=== PATIENT | female | born 1985 | race Caucasian/White ===

== ENCOUNTER 2017-07-19 23:18 | Emergency (ER) | payer MEDICARE, MEDICAID ==
--- OUTSIDE RECORDS SUMMARY | 2017-07-19 23:20 | XMS | Clinical Summary ---
:1985 Author Organization [facility] Address [address] [place] [address] Phone Care Team Providers Name Role Phone , Primary Care Provider Unavailable Allergies Not on File Current Medications Not on file Active Problems Not on file Social History Tobacco Use Types Packs/Day Years Used Date Never Assessed Sex Assigned at Date Recorded Not on file Last Filed Vital Signs Not on file Plan of Treatment Not on file Results Not on filefrom Last 3 Months
[2017-07-20 01:39] LABS: #Eosinphils 0.1 thou/uL (0.0-0.7); #Lymphocytes 1.7 thou/uL (1.20-3.40); #Monocytes 0.5 thou/uL (0.11-0.59); #Neutrophils 4.2 thou/uL (1.40-6.50); %Basophils 0.7 % (0.0-1.0); %Lymphocytes 25.6 % (21.0-51.0); %Monocytes 7.9 % (0.0-10.0); Hematocrit 30.7 % (36.0-47.0); Mean Platelet Volume 7.5 fL (7.4-10.4); Red Blood Cell (RBC) Count 3.06 mill/uL (4.20-5.40); White Blood Cell (WBC) Count 6.5 thou/uL (4.8-10.8)
[2017-07-20 02:10] LABS: ALT (SGPT) 203 U/L (8-55); AST (SGOT) 104 U/L (5-34); Alkaline Phosphatase 636 U/L (40-150); Anion Gap 11 mmol/L (10-20); BUN (Urea Nitrogen) 17 mg/dL (7.0-18.7); Bilirubin, Total 1.2 mg/dL (0.2-1.2); Calc. Creatinine Clearance 0 mL/min (70-130); Carbon Dioxide 25 mmol/L (22-29); Chloride 106 mmol/L (98-107); Estimated GFR-MDRD Greater than 90; Globulin 3.9 g/dL (2.4-3.5); Protein, Total 7.4 g/dL (6.0-8.3)
[2017-07-20 02:14] LABS: Bilirubin Small (Negative); Blood, Urine Small (Negative); Glucose, Urine (Dipstick) Negative (Negative); Ketone, Urine Negative (Negative); Nitrite Negative (Negative); Protein, Urine (Dipstick) Negative (Neg-Trace)
[2017-07-20 02:17] LABS: Bacteria/HPF 4+ HPF (None Seen); RBC/HPF 21-50 HPF (0-3); WBC/HPF 21-50 HPF (0-3)
[2017-07-20 02:24] LABS: Hyaline Casts/LPF 0-3 HYALINE CAST LPF (0-3 Hyaline); Renal Epithelial None Seen HPF (0-3); Transitional Epithelial NONE SEEN HPF (0-3)
--- NOTE | 2017-07-20 09:41 | RAD ---
RADIOGRAPH ABDOMEN 1 VIEW SUPINE: Date: 07/20/17 Time: 0056 hours HISTORY: 32-year-old female with constipation, gastroparesis, intestinal dysmotility, presenting with worseni ng generalized abdominal pain. COMPARISON: 02/09/16. FINDINGS: There is a greater amount of bowel gas currently, especially throughout the colon. There is also a g reater amount of bowel gas in nondilated small bowel loops now. Cholecystectomy clips. Large amount of stool distending the rectum again demonstrated, somewhat worse than on prior study. No evidence o f organomegaly. PEG tube remains, with distal tip in the left upper quadrant, presumably at the liga ment of Treitz. IMPRESSION: 1. Evidence for constipation and possible impacted stool in the rectum. 2. Nonspecific bowel gas pattern, but no evidence of high grade small bowel obstruction. POS: CHARIS
== END 2017-07-20 03:42 | disposition home or self-care (01) ==
LOC: ERS 23:18
DX: K59.00 Constipation, unspecified (principal); N39.0 Urinary tract infection, site not specified; G40.909 Epilepsy, unspecified, not intractable, without status epilepticus; Z79.899 Other long term (current) drug therapy
CPT/HCPCS: 51701; 74000; 80053; 80156; 81003; 81015; 85025; A4353

== ENCOUNTER 2017-08-18 06:48 | Inpatient (IN) | payer MEDICARE, MEDICAID ==
[2017-08-15 11:35] VITALS: BMI 19.6
--- OUTSIDE RECORDS SUMMARY | 2017-08-18 08:39 | XMS | Clinical Summary ---
:1985 Author Organization [facility] Address [address] [place] [address] Phone Care Team Providers Name Role Phone [...]
[2017-08-18] MEDS ORDERED: Fentanyl 100 MCG/2 ML VIAL ONE ×2 (09:05→13:01)
[2017-08-18] MEDS ORDERED: Midazolam HCl 2 mg/2 ml Vial ONE (09:05)
[2017-08-18] MEDS ORDERED: Dexamethasone 4 mg/ml Vial ONE (09:05)
[2017-08-18] MEDS ORDERED: Fentanyl 250 MCG/5 ML VIAL ONE (10:33)
[2017-08-18] MEDS ORDERED: Bupivacaine 0.25% HCL 30 ML VIAL ONE (10:46)
[2017-08-18] MEDS ORDERED: Lidocaine 1% PF 5 ML VIAL ONE (11:08)
[2017-08-18] MEDS ORDERED: Dexamethasone 20 MG/5 ML VIAL ONE (11:08)
[2017-08-18] MEDS ORDERED: Propofol 200 MG/20 ML VIAL ONE (11:08)
[2017-08-18] MEDS ORDERED: Glycopyrrolate 0.2 MG/ML 5 ML SYRINGE ONE (11:08)
[2017-08-18] MEDS ORDERED: hydrALAZINE 20 MG/ML VIAL SLOW IVP PRN (12:14)
[2017-08-18] MEDS ORDERED: Promethazine HCl 25 MG/ML VIAL IM PRN (12:14)
[2017-08-18] MEDS ORDERED: Ondansetron HCl/PF 4 MG/2 ML Vial IVP PRN (12:14)
[2017-08-18] MEDS ORDERED: Morphine 2 MG/ML SYRINGE SLOW IVP PRN (12:14)
--- NOTE | 2017-08-18 12:37 | OP ---
DATE OF PROCEDURE: 08/18/2017 PREOPERATIVE DIAGNOSIS: Colonic inertia. SURGEON: Celestine Vincent M.D. PROCEDURE PERFORMED: Laparoscopic assisted ileostomy placement. 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 She has had a lot of intestinal cramps and inertia, she has been throu gh multiple regimens to try and get her colon to function properly. She is TPN dependent because sh e cannot take in orally because it will not pass. Her mom was looking for a total colectomy, but we discussed options of just an ileostomy to start with, and she agreed. FINDINGS: The terminal ileum was divided as an end ileostomy. The distal segment was left in situ. PROCEDURE: After informed consent was obtained, the patient was taken to the operating room and giv en general endotracheal anesthesia. She was placed in the supine position. The abdomen was prepped and draped in the usual fashion. Local anesthesia infiltrated subcutaneously and deep with 0.5% Ma rcaine. A 5 mm incision was performed on the left lateral side. Veress needle inserted. Drop test performed. Pneumoperitoneum was created to a volume of 2 liters of carbon dioxide. Utilizing a bl adeless 5 mm trocar and 0 degree laparoscope direct visual entry in the abdominal cavity was perform ed. Pneumoperitoneum was created to a pressure of 15 mmHg. Using the laparoscope, a visual inspect ion was performed. The cecum was found, the terminal ileum was found. At this point, the skin was grasped with a Maria A clamp midway between umbilicus and the anterior superior iliac spine. A circu lar skin incision was performed as well as subcutaneous was excised. Then a 5 mm port was placed th rough the center of this opening and through this port the ileum was grasped and then the muscle was divided with electrocautery and the ileum was brought up through this opening. The ileum was then divided utilizing a CHILANGO stapling device and the mesentery was approximately 3 cm and then the distal portion of the ileum was replaced intraabdominally and the ileostomy was then created. T he bowel was attached to the fascia circumferentially with interrupted 3-0 Vicryl sutures. The skin incision on the left side was closed with 4-0 Vicryl Rapide and Dermabond applied, then the staple line was excised and the ileostomy matured with an inverting technique to prolapse the distal portio n of the ileum through the ostomy in a Witzel manner. The skin was sutured to the bowel wall and th en to the edge of the ileum to invert it circumferentially. The hemostasis achieved. A wafer appli ed and then an ileostomy bag. The patient tolerated the procedure well and transferred to recovery in good condition.
[2017-08-18] MEDS ORDERED: cefOXitin Sodium 1 GM, Syringe 0.5 ML in Sterile Water 10 ML SLOW IVP SCH (14:00)
[2017-08-18] MEDS ORDERED: CEFOXITIN SODIUM IVPB SCH (14:00)
[2017-08-18] MEDS ORDERED: STERILE WATER IVPB SCH (14:00)
[2017-08-18] MEDS ORDERED: Ondansetron ODT 8 MG TAB PER TUBE PRN (14:05)
[2017-08-18] MEDS ORDERED: diphenhydrAMINE 12.5 MG/5 ML UDCUP PER TUBE PRN (14:10)
[2017-08-18] MEDS: Morphine 2 MG/ML SYRINGE SLOW IVP PRN ×2 (14:14→15:58)
[2017-08-18] MEDS: Sodium Chloride 0.9% 1,000 ML IV SCH ×2 (14:18→23:27)
[2017-08-18] MEDS ORDERED: fentaNYL 75 mcg/hour Patch TD SCH (15:00)
[2017-08-18] MEDS ORDERED: carBAMazepine 200 MG TAB PER TUBE SCH (15:00)
[2017-08-18] MEDS: Simethicone Chewable 80 MG TAB PER TUBE SCH ×2 (15:22→20:16)
[2017-08-18] MEDS: Dicyclomine 20 MG TAB PER TUBE SCH ×2 (15:24→20:16)
[2017-08-18] MEDS: Lorazepam 1 MG TAB PER TUBE SCH ×2 (15:24→20:16)
[2017-08-18] MEDS: Bethanechol Chloride 10 MG TAB PER TUBE SCH ×2 (15:25→20:15)
[2017-08-18] MEDS ORDERED: FLU VACC QS2017-18 36 mo. & older 0.5 ML SYRINGE IM ONE (15:30)
[2017-08-18] MEDS: Morphine 10 MG/ML VIAL SLOW IVP PRN ×4 (17:32→21:27)
[2017-08-18] MEDS: Acetaminophen 1,000 MG in Premix Bag 1 BAG IVPB SCH ×2 (17:33→23:28)
[2017-08-18] MEDS: Ketorolac Tromethamine 30 MG/ML VIAL IVP SCH ×2 (17:33→23:27)
[2017-08-18] MEDS: cefOXitin Sodium 1 GM, Syringe 0.5 ML in Sterile Water 10 ML SLOW IVP SCH (20:14)
[2017-08-18] MEDS: Famotidine/PF 20 mg/2ml Vial SLOW IVP SCH (20:15)
[2017-08-18] MEDS: carBAMazepine 200 MG TAB PER TUBE SCH (20:51)
[2017-08-18] MEDS: Famotidine 20 MG TAB PO SCH (21:12)
[2017-08-19] MEDS: cefOXitin Sodium 1 GM, Syringe 0.5 ML in Sterile Water 10 ML SLOW IVP SCH (04:23)
[2017-08-19] MEDS: Acetaminophen 1,000 MG in Premix Bag 1 BAG IVPB SCH ×2 (05:21→12:18)
[2017-08-19] MEDS: Ketorolac Tromethamine 30 MG/ML VIAL IVP SCH ×2 (05:22→12:16)
[2017-08-19] MEDS: Morphine 10 MG/ML VIAL SLOW IVP PRN ×6 (05:26→14:45)
[2017-08-19 05:41] LABS: #Basophils 0.1 thou/uL (0.0-0.2); #Eosinphils 0.1 thou/uL (0.0-0.7); #Lymphocytes 2.9 thou/uL (1.20-3.40); #Monocytes 0.7 thou/uL (0.11-0.59); #Neutrophils 3.3 thou/uL (1.40-6.50); %Basophils 1.1 % (0.0-1.0); %Eosinophils 1.1 % (0.0-10.0); %Monocytes 9.8 % (0.0-10.0); Hematocrit 30.3 % (36.0-47.0); Mean Platelet Volume 8.3 fL (7.4-10.4); Red Blood Cell (RBC) Count 2.92 mill/uL (4.20-5.40)
[2017-08-19 06:02] LABS: Anion Gap 11 mmol/L (10-20); BUN (Urea Nitrogen) 13 mg/dL (7.0-18.7); Calc. Creatinine Clearance 111 mL/min (70-130); Carbon Dioxide 22 mmol/L (22-29); Chloride 108 mmol/L (98-107); Estimated GFR-MDRD Greater than 90
[2017-08-19] MEDS: Sodium Chloride 0.9% 1,000 ML IV SCH (06:52)
[2017-08-19] MEDS ORDERED: Enoxaparin Sodium 30 MG/0.3 ML SYRINGE SC SCH (09:00)
[2017-08-19] MEDS ORDERED: Pantoprazole 40 MG VIAL IVP SCH (09:00)
[2017-08-19] MEDS: Famotidine/PF 20 mg/2ml Vial SLOW IVP SCH (09:32)
[2017-08-19] MEDS: Bethanechol Chloride 10 MG TAB PER TUBE SCH ×2 (09:34→15:01)
[2017-08-19] MEDS: carBAMazepine 200 MG TAB PER TUBE SCH ×2 (09:37→15:02)
[2017-08-19] MEDS: Simethicone Chewable 80 MG TAB PER TUBE SCH ×2 (09:38→14:58)
[2017-08-19] MEDS: Lorazepam 1 MG TAB PER TUBE SCH ×2 (09:40→15:00)
[2017-08-19] MEDS: Dicyclomine 20 MG TAB PER TUBE SCH ×2 (09:40→15:01)
[2017-08-19] MEDS: Famotidine 20 MG TAB PO SCH (09:41)
--- NOTE | 2017-08-19 10:33 | PQF ---
IRA GILLESPIE JOHN A JR MD [id number] SURG A- [id number] CLINICAL DOCUMENTATION IMPROVEMENT CLARIFICATION FORM: ICD-10 Updated PLEASE DO AN ADDENDUM TO THE PROGRESS NOTE WITH ANY DOCUMENTATION UPDATES OR ADDITIONS AND CARRY THROUGH TO DC SUMMARY. THANK YOU. DATE: 08-19-17 ATTN: DR. JOSHUA Please exercise your independent, professional judgment in responding to the clarification form. Clinical indicators are provided on the bottom of this form for your review Please check appropriate box(s): [ ] Functional Quadriplegia D/T RETT'S DX [ ] Weakness (please specify anatomical area) Specify: [ ] Non dominant side [ ] Dominant side [ ] Hemiplegia Specify: [ ] Non dominant side [ ] Dominant side Status: [ ] Complete [ ] Incomplete [ ] Paraplegia Specify: [ ] Non dominant side [ ] Dominant side Status: [ ] Complete [ ] Incomplete [ ] Other diagnosis [ ] Unable to determine In addition, please specify: Present on Admission (POA): [ ] Yes [ ] No [ ] Unable to determine CLINICAL INDICATORS - SIGNS / SYMPTOMS / LABS DR. MCNAIR - CARDIO CONSULT BMI 19.7 - THIN WHEELCHAIR BOUND UPPER EXTREMITY CONTRACTURES NECK IS STIFF NON-VERBAL PSYCHOMOTOR RETARDATION - NURSING ASSESSMENT: ORIENTATION - UNABLE TO ASSESS - UNABLE TO COMPREHEND DYSPHAGIA W/ FEEDING TUBE NONAMBULATORY INCONTINENT - DIAPER VERY LIMITED MOBILITY; VERY LIMITED SENSORY PERCEPTION; CHAIRFAST RISK FACTORS OP NOTE: RETT'S DX TREATMENT: 08-18 NURSING ASSESSMENT: TOTAL ASSIST - CHAIRFAST DIAPER OP NOTE: TPN DEPENDENT LAPAROSCOPIC ASSISTED ILEOSTOMY PLACEMENT THANK YOU, ALEXA (This form is maintained as a part of the permanent medical record) 2014 [employer]. All Rights Reserved Alexa Devine RN, BS [email or web address] [employer] [facility]
[2017-08-19 11:55] VITALS: BP 128/84; TEMP 98.1
--- NOTE | 2017-08-20 03:48 | DIS ---
DISCHARGE DIAGNOSIS: Colonic inertia. SURGEON: Celestine Vincent MD PROCEDURE PERFORMED: Laparoscopic diverting ileostomy. HOSPITAL COURSE: The patient was admitted. She was taken to the operating room, where she underwen t an ileostomy. Postoperatively, did very well. She was resumed on her outpatient medicines. Her mother was instructed as to care of the ostomy. She felt comfortable. She is discharged home in go od condition on her usual TPN and medications. She will follow up with me in 2 weeks.
== END 2017-08-19 15:15 | disposition home health service (06) | DRG 330 ==
LOC: SURG A 08:26
PROVIDERS: ADMIT Surgery; ATTEND Surgery
PROC: 0D1B0Z4 Bypass Ileum to Cutaneous, Open Approach (ICD-10-PCS; principal; 2017-08-18)
PROC: 0WJP4ZZ Inspection of Gastrointestinal Tract, Percutaneous Endoscopic Approach (ICD-10-PCS; 2017-08-18)
DX: K59.8 Other specified functional intestinal disorders (principal); F84.2 Rett's syndrome; F79 Unspecified intellectual disabilities; K21.9 Gastro-esophageal reflux disease without esophagitis
CPT/HCPCS: 36415; 80048; 80053; 85025; A4216; C9113; J0131; J0694; J1100; J1885; J2001; J2250; J2270; J2704; J3010; S0020; S0028

== ENCOUNTER 2017-09-01 16:28 | Emergency (ER) | payer MEDICARE, MEDICAID ==
[~2017-09-01 16:28] MED LIST: GASTROGRAFIN 30 ML BOT ONE
--- OUTSIDE RECORDS SUMMARY | 2017-09-01 17:56 | XMS | Clinical Summary ---
:1985 Author Organization [facility] Address [address] [place] [address] Phone Care Team Providers Name Role Phone [...]
--- NOTE | 2017-09-01 18:52 | RAD ---
ABDOMEN ONE VIEW GASTROJEJUNOSTOMY TUBE CHECK: History: Poor function of gastrojejunostomy feeding catheter. FINDINGS: Senior Sales Executive KUB shows a nonspecific bowel gas pattern. Metallic clips overlie the right upper quadrant. Po st-operative changes of the right lower quadrant are also evident with circular device, having the a ppearance of an ostomy. Small amount of contrast was administered through the jejunostomy feeding catheter, opacifying nondi lated jejunum. Tube is well positioned within the proximal jejunum. IMPRESSION: Subcutaneous gastrojejunostomy feeding catheter is good position with good radiographic function. POS: [facility]ARD
== END 2017-09-01 19:23 | disposition home or self-care (01) ==
LOC: ERS 16:28
DX: K94.23 Gastrostomy malfunction (principal); F84.2 Rett's syndrome; Z79.2 Long term (current) use of antibiotics; Z79.899 Other long term (current) drug therapy
CPT/HCPCS: 74000; 76000; 80053; 80061; 80076; 83735; 84100; 85025

== ENCOUNTER 2018-01-21 14:13 | Emergency (ER) | payer MEDICARE, MEDICAID ==
[2018-01-21 15:25] LABS: #Eosinphils 0.1 thou/uL (0.0-0.7); #Lymphocytes 2.3 thou/uL (1.20-3.40); #Monocytes 0.3 thou/uL (0.11-0.59); #Neutrophils 3.4 thou/uL (1.40-6.50); %Basophils 0.8 % (0.0-1.0); %Lymphocytes 36.9 % (21.0-51.0); %Monocytes 4.8 % (0.0-10.0); %Neutrophils 56.5 % (42.0-75.0); Hemoglobin 10.7 g/dL (12.0-16.0); Mean Corpuscular HGB CONC 33.9 g/dL (32.0-36.0); Mean Corpuscular Hemoglobin 33.8 pg (27.0-31.0); Mean Corpuscular Volume 99.7 fl (81.0-99.0); Mean Platelet Volume 9.1 fL (7.4-10.4); Platelet Count 234 thou/uL (130-400); RBC Distribution Width 12.5 % (11.5-14.5); Red Blood Cell (RBC) Count 3.17 mill/uL (4.20-5.40); White Blood Cell (WBC) Count 6.1 thou/uL (4.8-10.8)
[2018-01-21 15:47] LABS: CRP (Inflammatory) 1.25 mg/dL (= or < 0.5)
[2018-01-21 16:01] LABS: ALT (SGPT) 406 U/L (8-55); AST (SGOT) 304 U/L (5-34); Albumin 4.1 g/dL (3.5-5.0); Alkaline Phosphatase 1069 U/L (40-150); Anion Gap 17 mmol/L (10-20); BUN (Urea Nitrogen) 17 mg/dL (7.0-18.7); Bilirubin, Total 5.5 mg/dL (0.2-1.2); Calc. Creatinine Clearance 0 mL/min (70-130); Calcium 10.5 mg/dL (7.8-10.44); Carbon Dioxide 19 mmol/L (22-29); Chloride 107 mmol/L (98-107); Estimated GFR-MDRD Greater than 90; Globulin 5.1 g/dL (2.4-3.5); Glucose 85 mg/dL (70-105); Potassium 3.5 mmol/L (3.5-5.1); Protein, Total 9.2 g/dL (6.0-8.3); Sodium 139 mmol/L (136-145)
[2018-01-21 19:05] LABS: Bilirubin Small (Negative); Blood, Urine Small (Negative); Clarity CLOUDY (Clear); Glucose, Urine (Dipstick) Negative (Negative); Leukocyte Trace (Negative); Nitrite Negative (Negative); Protein, Urine (Dipstick) Negative (Neg-Trace); Specific Gravity, Urine 1.018 (1.002-1.036); Urobilinogen 0.2 mg/dL (0.2-1.0)
[2018-01-21 19:07] LABS: Bacteria/HPF 4+ HPF (None Seen); Hyaline Casts/LPF 0-3 HYALINE CAST LPF (0-3 Hyaline); Squamous Epithelial None Seen HPF (0-3); WBC/HPF 0-3 HPF (0-3)
[2018-01-21] MEDS ORDERED: Morphine 10 MG/ML VIAL ONE (20:26)
== END 2018-01-21 20:50 | disposition home or self-care (01) ==
LOC: ERS 14:13
DX: T82.49XA Other complication of vascular dialysis catheter, initial encounter (principal); N39.0 Urinary tract infection, site not specified; K59.00 Constipation, unspecified; G40.909 Epilepsy, unspecified, not intractable, without status epilepticus; G24.9 Dystonia, unspecified
CPT/HCPCS: 36415; 51701; 80053; 81003; 81015; 83690; 83880; 85025; 86140; 96372; A4353; J2270

== ENCOUNTER → 2018-01-23 | Day surgery (SDC) | payer MEDICARE, MEDICAID ==
[~2018-01-23] MED LIST changes: +Bupivacaine HCl 0.5%/Epinephrine 1:200,000/PF 30 ml Vial ONE; +CEFAZOLIN/Water 2 GM/20 ML SYRINGE ONE; +Fentanyl 100 MCG/2 ML VIAL ONE; -GASTROGRAFIN 30 ML BOT ONE; +HYDROmorphone 0.5 MG/0.5 ML SYRINGE ONE; +Lidocaine 2% 10 ML INJ ONE; +Midazolam HCl 2 mg/2 ml Vial ONE; +Propofol 200 MG/20 ML VIAL ONE
--- NOTE | 2018-01-23 12:42 | HP ---
HISTORY OF PRESENT ILLNESS: Orquidea Cartwright is a 32-year-old female who I have been following for so me time, placing Ward catheters because of dysphagia, gastroparesis, Maninder syndrome, TPN dependenc y. Her Ward catheter is fractured. She presented to the emergency room 2 days ago and a clamp wa s applied. We do not have a repair kit. Plan is to replace the Ward catheter. PAST MEDICAL HISTORY: Gastroparesis, seizure disorder, Maninder syndrome. PAST SURGICAL HISTORY: 1. Catheter was placed in the past. 2. Tendon repair. 3. Cholecystectomy. 4. PEG tube placement. 5. History of jejunostomy tube. 6. Dr. Vincent placed an ileostomy because of colonic inertia 07/2017. ALLERGIES: BENZOIN, LAMOTRIGINE. TOBACCO: None. ALCOHOL: None. MEDICATIONS: Amoxicillin, Urecholine, Tegretol, Bentyl, diphenhydramine, Nexium, ferrous sulfate, Di laudid, lorazepam, Zofran. PHYSICAL EXAMINATION: LUNGS: Clear to auscultation. CARDIAC: Regular rate and rhythm without murmur or gallop. ABDOMEN: Soft. Ileostomy, PEG tube placement. EXTREMITIES: Unremarkable. ASSESSMENT AND PLAN: Ward catheter malfunction. Plan replacement of Ward.
--- NOTE | 2018-01-23 15:11 | OP ---
DATE OF OPERATION: 01/23/2018 PREOPERATIVE DIAGNOSES: Rett syndrome, malnutrition, nonfunctional gastrointestinal tract ileostomy, Button gastrostomy tube, fractured Ward catheter port. PROCEDURES PERFORMED: Removal of old Ward catheter, left subclavian vein, placement of a new Hick man catheter, left subclavian vein. Note, right subclavian vein probably occluded. SURGEON: Dr. Agustín Barcenas ANESTHESIA: General. Local 0.5% Marcaine with epinephrine, 30 mL, mixed with 2% Xylocaine, 10 mL. PROCEDURE IN DETAIL: The patient was taken to the operating room under general anesthesia, neck and chest prepared with ChloraPrep, draped in routine fashion. Local anesthetic infiltrated to skin and subcutaneous tissue about the operative site. I initially tried to access the right subclavian vein and was able to obtain access, but the J wire would not thread, indicating the subclavian vein occlus ion. This site was abandoned. The patient's Ward catheter cuff had been removed prior to preppin g the patient and left hanging to the side and prep. A trocar catheter induced through a new access point, as I was able to access the subclavian vein and J-wire threaded and the old Ward catheter r emoved and area prepared with ChloraPrep again and J-wire threaded. Trocar catheter removed. A skin entrance site enlarged sharply. Dilator and pull-away sheath placed over the J-wire into the subcla vian vein. J wire and dilator removed. Catheter tailored to length, placed through the pull-away sh eath under fluoroscopic visualization, placed in the superior vena cava and cuff placed beneath the s kin and his pull-away sheath removed. Catheter secured with 2 interrupted sutures of 3-0 Prolene. S terile dressing applied. Each port aspirated blood and flushed with heparinized saline solution.
--- NOTE | 2018-01-23 15:35 | RAD ---
CHEST 1 VIEW: COMPARISON: 02/12/17. HISTORY: Status post HemoSplit dialysis catheter placement. FINDINGS: There is evidence of a left-sided HemoSplit dialysis catheter with the distal tip projecting over the right atrium. Heart size is normal. The pulmonary vessels and hilum are normal. Costophrenic angl es are clear. No consolidation or mass. No pneumothorax or osseous abnormalities. IMPRESSION: 1. No acute cardiopulmonary process. 2. No pneumothorax. Left-sided HemoSplit dialysis catheter as defined above POS: [facility]IS
== END ==
LOC: SDC 11:33
PROVIDERS: ATTEND Specialist
PROC: 0J2TXYZ Change Other Device in Trunk Subcutaneous Tissue and Fascia, External Approach (ICD-10-PCS; principal; 2018-01-23)
DX: T82.594A Other mechanical complication of infusion catheter, initial encounter (principal); T85.898A Other specified complication of other internal prosthetic devices, implants and grafts, initial encounter; G40.909 Epilepsy, unspecified, not intractable, without status epilepticus; F84.2 Rett's syndrome; E46 Unspecified protein-calorie malnutrition; Z88.8 Allergy status to other drugs, medicaments and biological substances
CPT/HCPCS: 36581; 71045; 96374; C1751; J0670; J1170; J1642; J2250; J2704; J3010

== ENCOUNTER 2018-02-26 07:54 | Emergency (ER) | payer MEDICARE, MEDICAID ==
--- NOTE | 2018-02-26 09:15 | RAD ---
CHEST 1 VIEW ABDOMEN 2 VIEWS: Date: 02/26/18 HISTORY: Gastroparesis. Abdominal pain. COMPARISON: 05/26/14 and 01/23/18. FINDINGS: Cardiac silhouette is magnified by projection. Pulmonary vasculature is unremarkable. Patient is rota rodney rightward. No lobar consolidation or evidence of free subdiaphragmatic gas. Left subclavian centr al venous catheter remains in place. Gas and stool overlie the colon and rectum. There are no differential air fluid levels or evidence of free intraperitoneal gas. Radiopaque tubing over the upper abdomen has the appearance of a feeding c atheter. IMPRESSION: 1. Nonspecific bowel gas pattern. No evidence of obstruction. 2. Status post cholecystectomy. 3. Postoperative changes and other lines and tubes appear stable. POS: [facility]
[2018-02-26] MEDS ORDERED: Lorazepam 2 MG/ML VIAL ONE ×2 (09:16→10:34)
[2018-02-26 09:57] LABS: Bilirubin Negative (Negative); Blood, Urine Small (Negative); Clarity TURBID (Clear); Glucose, Urine (Dipstick) Negative (Negative); Leukocyte Moderate (Negative); Nitrite Negative (Negative); Protein, Urine (Dipstick) Negative (Neg-Trace); Specific Gravity, Urine 1.018 (1.002-1.036); Urobilinogen 0.2 mg/dL (0.2-1.0); pH, Urine 8.5 (5.0-9.0)
[2018-02-26 10:02] LABS: Squamous Epithelial 0-3 HPF (0-3); WBC/HPF 21-50 HPF (0-3)
[2018-02-26 10:03] LABS: Pathc Cast-AUWi Flag 4.36 (0-2.49); Yeast-AUWi Flag 106.4 (0-25.0)
[2018-02-26 10:20] LABS: Hyaline Casts/LPF 0-3 HYALINE CAST LPF (0-3 Hyaline); Yeast-All Forms None Seen HPF (None Seen)
[2018-02-26 10:21] LABS: Bacteria/HPF 2+ HPF (None Seen)
[2018-02-26] MEDS ORDERED: Nitrofurantoin Monohyd/M-Cryst 100 MG CAP PO SCH (11:45)
[2018-02-26] MEDS ORDERED: Phenazopyridine HCl 97.5 MG TABLET PO SCH (12:30)
== END 2018-02-26 12:43 | disposition home or self-care (01) ==
LOC: ERS 07:54
DX: N39.0 Urinary tract infection, site not specified (principal); R45.1 Restlessness and agitation; G40.909 Epilepsy, unspecified, not intractable, without status epilepticus; K31.84 Gastroparesis; Z79.899 Other long term (current) drug therapy
CPT/HCPCS: 51701; 74022; 81003; 81015; 87077; 87086; 87186; 96372; 96374; 96376; J2060

== ENCOUNTER 2019-06-20 01:28 | Inpatient (IN) | payer MEDICARE, MEDICAID ==
[2019-06-20] MEDS ORDERED: Acetaminophen 650 MG Suppository ONE (01:49)
[2019-06-20 02:01] LABS: #Monocytes 0.3 thou/uL (0.11-0.59); #Neutrophils 4.6 thou/uL (1.40-6.50); %Basophils 0.4 % (0.0-1.0); %Eosinophils 0.2 % (0.0-10.0); %Lymphocytes 16.1 % (21.0-51.0); %Monocytes 5.4 % (0.0-10.0); Hemoglobin 10.2 g/dL (12.0-16.0); Mean Corpuscular HGB CONC 34.2 g/dL (32.0-36.0); Mean Corpuscular Hemoglobin 32.2 pg (27.0-31.0); Mean Corpuscular Volume 94.2 fL (78.0-98.0); Platelet Count 145 thou/uL (130-400); RBC Distribution Width 12.3 % (11.5-14.5); Red Blood Cell (RBC) Count 3.18 mill/uL (4.20-5.40); White Blood Cell (WBC) Count 5.9 thou/uL (4.8-10.8)
[2019-06-20] MEDS ORDERED: Piperacillin/Tazobactam 4.5 GM VIAL ONE (02:04)
[2019-06-20 02:24] LABS: ALT (SGPT) 62 U/L (8-55); AST (SGOT) 48 U/L (5-34); Albumin 2.9 g/dL (3.5-5.0); Alkaline Phosphatase 672 U/L (40-150); Anion Gap 15 mmol/L (10-20); BUN (Urea Nitrogen) 24 mg/dL (7.0-18.7); Bilirubin, Total 0.5 mg/dL (0.2-1.2); Calc. Creatinine Clearance 0 mL/min (70-130); Calcium 9.6 mg/dL (7.8-10.44); Carbon Dioxide 24 mmol/L (22-29); Chloride 110 mmol/L (98-107); Estimated GFR-MDRD Greater than 90; Globulin 5.1 g/dL (2.4-3.5); Glucose 119 mg/dL (70-105); Potassium 3.8 mmol/L (3.5-5.1); Sodium 145 mmol/L (136-145)
[2019-06-20 02:46] LABS: Bacteria/HPF 4+ HPF (None Seen); Bilirubin Negative (Negative); Blood, Urine 3+ (Negative); Clarity Extra Turbid (Clear); Glucose, Urine (Dipstick) Normal (Negative); Leukocyte 500 Leu/uL (Negative); Nitrite Negative (Negative); Protein, Urine (Dipstick) 70 mg/dL (Neg-Trace); RBC/HPF Greater than 50 HPF (0-3); Squamous Epithelial None Seen HPF (0-3); Urobilinogen Normal mg/dL (Less than 2); WBC/HPF Greater than 50 HPF (0-3)
[2019-06-20] MEDS ORDERED: Fentanyl 100 MCG/2 ML VIAL ONE (03:01)
--- NOTE | 2019-06-20 03:34 | PDOC.FPRHP ---
- History of Present Illness Chief Complaint: Fever History of Present Illness: 34yo female w/ PMHx of Rett Syndrome presented to the ED tonight w/ fevers. 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 Pt's mother stated that tonight while she was getting the pt ready for bed she noticed that she was hot to touch. She took her temperature and found it to be 102.5. Mother states pt has hx of severe sepsis 2/2 UTI and central line infections so she brought the pt in to be evaluated. ED workup found the pt to be tachycardic with a UTI and temperature of 101.2. Pt's mother denies any recent cough, changes in urination, change in mentation or activity, or expressing that she is in pain. Pt was recently seen this week by PCP and had a urine culture done, mom was if the results were back, review of records show it was positive for Klebsiella which she has previously had positive urine cultures for. Mom states pt finished abx for last UTI about 2 weeks ago. Pt was started on indwelling polanco a few months ago after she developed urinary retention. Polanco last changed last week. Central line changed February 2018. ED Course: Tachycardic/Tachypneic, Febrile, 2L IVF, dilaudid and fentanyl, tylenol, Vanc and Zosyn - Allergies/Adverse Reactions Allergies Allergy/AdvReac Type Severity Reaction Status Date / Time benzoin Allergy Intermediate Rash Verified 01/22/18 17:33 lamotrigine [From Lamictal] Allergy Mild Severe Verified 02/11/17 16:14 agitation unknown Allergy something Uncoded 01/22/18 17:33 she gets from line placement, ??? - Home Medications Medication Instructions Recorded Confirmed Type Bethanechol Chloride [Urecholine] 7.5 mg PER TUBE TID 07/12/13 06/20/19 History Simethicone [Gas Free] 125 mg PER TUBE TID 07/12/13 06/20/19 History Dicyclomine [Bentyl] 20 mg PER TUBE TID 01/26/14 06/20/19 History carBAMazepine [Tegretol] 400 mg PER TUBE TID 01/26/14 06/20/19 History fentaNYL [Duragesic] 2 patch TD Q3D 01/26/14 06/20/19 History Ondansetron HCl [Zofran] 8 mg PER TUBE TID PRN 03/24/14 06/20/19 History HYDROmorphone [Dilaudid] 4 mg SLOW IVP Q3HR 10/30/14 06/20/19 History Ferrous Sulfate 60 mg PER TUBE DAILY 05/27/15 06/20/19 History Esomeprazole [NexIUM IV] 40 mg IV DAILY 08/15/17 06/20/19 History LORazepam [Lorazepam] 1 mg PER TUBE TID 08/15/17 06/20/19 History QUEtiapine Fumarate [SEROquel] 100 mg PER TUBE TID 01/22/18 06/20/19 History Amitriptyline HCl 50 mg PER TUBE BID 06/20/19 06/20/19 History Clotrimazole 1% Cream [Lotrimin 1% 1 applic TOP BID PRN 06/20/19 06/20/19 History Cream] Diazepam 1 each RC 06/20/19 History OLANZapine 5 mg PER TUBE QID 06/20/19 06/20/19 History Ursodiol 250 mg PER TUBE TID 06/20/19 06/20/19 History - History PMHx: Rett Syndrome, gastroparesis, epilepsy, contractures, scoliosis, cognitive disability PSHx: G tube, end iliostomy, left hamstring release, bilateral achilles release FHx: Non contributory Social: Mother is palliative care nurse practitioner - Review of Systems ROS unobtainable: due to mental status General: reports: fever/chills - Vital signs BP: [] HR: [] RR: [] Tmax: [] Pox: []% on [] Wt: [] - Physical Exam Constitutional: NAD -Constitutional: Awake and alert -HEENT: Upward gaze with minimal deviation, somewhat dry MM Neck: FROM Heart: normal S1/S2, no murmurs/rubs/gallops, pulses present, no edema -Heart: Tachycardic Lungs: CTAB, no respiratory distress, good air movement Abdomen: soft, non-tender -Abdomen: G tube in LUQ, iliostomy bag in RLQ -Musculoskeletal: Low muscle tone overall, contractures of lower legs bilaterally -Neurological: Neurologically at baseline per mother - aphasic, will produce moans and noises, spontaneously moves head and upper limbs minimally Skin: capillary refill <2 seconds, no jaundice -Skin: Well healing perisacral ulcer Heme/Lymphatic: no unusual bruising or bleeding, no purpura -Psychiatric: Unable to asses FMR H&P: Results - Labs Result Diagrams: 06/20/19 01:48 06/20/19 01:48 Lab results: WBC 5.9 thou/uL (4.8-10.8) 06/20/19 01:48 Hgb 10.2 g/dL (12.0-16.0) L 06/20/19 01:48 Hct 29.9 % (36.0-47.0) L 06/20/19 01:48 MCV 94.2 fL (78.0-98.0) 06/20/19 01:48 Plt Count 145 thou/uL (130-400) 06/20/19 01:48 Neutrophils % 78.0 % (42.0-75.0) H 06/20/19 01:48 Sodium 145 mmol/L (136-145) 06/20/19 01:48 Potassium 3.8 mmol/L (3.5-5.1) 06/20/19 01:48 Chloride 110 mmol/L (98-107) H 06/20/19 01:48 Carbon Dioxide 24 mmol/L (22-29) 06/20/19 01:48 BUN 24 mg/dL (7.0-18.7) H 06/20/19 01:48 Creatinine 0.46 mg/dL (0.6-1.1) L 06/20/19 01:48 Glucose 119 mg/dL (70-105) H 06/20/19 01:48 Lactic Acid 1.3 mmol/L (0.5-2.2) 06/20/19 01:48 Calcium 9.6 mg/dL (7.8-10.44) 06/20/19 01:48 Total Bilirubin 0.5 mg/dL (0.2-1.2) 06/20/19 01:48 AST 48 U/L (5-34) H 06/20/19 01:48 ALT 62 U/L (8-55) H 06/20/19 01:48 Alkaline Phosphatase 672 U/L (40-150) H 06/20/19 01:48 Serum Total Protein 8.0 g/dL (6.0-8.3) 06/20/19 01:48 Albumin 2.9 g/dL (3.5-5.0) L 06/20/19 01:48 Urine Ketones Negative mg/dL (Negative) 06/20/19 01:59 Urine Blood 3+ (Negative) A 06/20/19 01:59 Urine Nitrite Negative (Negative) 06/20/19 01:59 Ur Leukocyte Esterase 500 Renetta/uL (Negative) A 06/20/19 01:59 Urine RBC Greater than 50 HPF (0-3) A 06/20/19 01:59 Urine WBC Greater than 50 HPF (0-3) A 06/20/19 01:59 Ur Squamous Epith Cells None Seen HPF (0-3) 06/20/19 01:59 Urine Bacteria 4+ HPF (None Seen) A 06/20/19 01:59 - Radiology Interpretation Chest x-ray Status: image reviewed by me (No infiltrates seen) FMR H&P: A/P - Problem List (1) Sepsis Current Visit: Yes Status: Acute Code(s): A41.9 - SEPSIS, UNSPECIFIED ORGANISM (2) UTI (urinary tract infection) Current Visit: No Status: Acute Qualifiers: Urinary tract infection type: acute pyelonephritis Qualified Code(s): N10 - Acute pyelonephritis (3) Chronic pain disorder Current Visit: No Status: Chronic Code(s): G89.4 - CHRONIC PAIN SYNDROME (4) Nondiabetic gastroparesis Current Visit: No Status: Chronic Code(s): K31.84 - GASTROPARESIS (5) Normocytic anemia Current Visit: No Status: Chronic Code(s): D64.9 - ANEMIA, UNSPECIFIED (6) Rett syndrome Current Visit: No Status: Chronic Code(s): F84.2 - RETT'S SYNDROME (7) Seizure disorder Current Visit: No Status: Chronic Code(s): G40.909 - EPILEPSY, UNSP, NOT INTRACTABLE, WITHOUT STATUS EPILEPTICUS - Plan Sepsis - Likely 2/2 to UTI, r/o central line contamination Febrile with tachycardia and tachypnea - indwelling polanco, recent UTI - finished keflex 2 weeks ago UA today showing infection, urine culture from 06/15 +klebsiella - IVF: 2L in ED, maintenance w/ NS @ 90 - Cont Vanc and Zosyn - Urine, blood, and central line cultures pending - Procal ordered - Tylenol PRN - Trend WBC, currently no leukocytosis Normocytic Anemia - Currently at pt's baseline from previous admissions, likely ACD Rett Syndrome - Complications of Dz: gastroparesis, seizures, non-verbal, contractures, scoliosis, urinary retention - NPO w/ TPN and g tube for meds and decompression - L subclavian central line, indwelling polanco, iliostomy - High levels of chronic pain medication - Consult dietary - Continue home carbamazepine, bethanechol, amitriptyline, lorazepam, iron, dicyclomine, olanzapine, seroquel, ursodiol Dispo: Admit to medical inpt Diet: Home TPN IVF: NS @ 75 VTE: Lovenox Code Status: Full FMR H&P: Upper Level - Pertinent history 34 y/o F PMHx Rett Syndrome, gastroparesis chronically on TPN presents to the ED with her mother for fevers. History obtained by her mother as pt is non-verbal. She was found to have a temp to 102.5 tonight around 8pm, so her mother brought her in. She has a history of several infections in both her blood and urine. She has a chronic polanco catheter 2/2 urinary retention and has a subclavian Mittal catheter that was most recently replaced last year as well as an ileostomy and a sacral decubitus ulcer that is healing, G tube. She has had no change in UOP. She was recently treated for a UTI with keflex that she completed about 2 weeks ago. The G tube is used for medications and decompression. Her mom has not noticed any changes in her awareness. - Pertinent findings Vitals: BP 141/108, HR 123, RR 26, Temp 101.2, O2 sat 98% on RA, weight 43kg PE: Gen - alert, awake, appears in pain HEENT - dry mucous membranes CV - tachycardic, regular rhythm, no murmurs Resp - CTAB, no wheezes Abd - soft, non-distended, non-tender, ileostomy and G tube in place with no erythema or exudate Ext - legs chronic contractures Skin - no erythema, warmth, exudate, induration around mittal, g tube, or iliostomy Labs: WBC 5.9, Lactic acid 1.3, UA 500 LE, 3+ blood, 4+ bacteria AST 48, ALT 62, Alk Phos 672 - Plan Date/Time: 06/20/19 0334 I, Shayna Arevalo MD, PGY-3, have evaluated this patient and agree with findings/ plan as outlined by engineering intern resident. Pertinent changes/additions are listed here. 1. Sepsis 2/2 UTI Pt initially tachycardic, tachypneic, febrile with suspected source from urine. Pt with indwelling polanco and recent Klebsiella UTI that was pansensitive, except macrobid. Pt also with possible source from central line with history of bacteremia and yeast in central line as pt gets TPN through it. s/p 1L NS fluid bolus, vanc, zosyn, tylenol. -Will f/u on blood cultures, line cultures, urine cultures -Continue vanc and zosyn -Check procalcitonin -Continue IVF with NS @ 75 -Tylenol prn 2. Rett Syndrome Pt with multiple comorbidities related to this including gastroparesis, seizures , non-verbal, contractures, scoliosis, urinary retention. She is kept NPO at all times and gets decompression through the G tube as well as her meds that way. She has a L subclavian Mittal that she gets TPN and NS @ 50mL/hr through. She has an iliostomy and chronic polanco. She has chronic pain that is treated with opioids including fentanyl patch and dilaudid. -Continue home pain regimen -Consult data transcriber for TPN -NS @ 75 as pt is a little dry, but will decrease back to home regimen once pt fluid neutral -Continue home carbamazepine, bethanechol, amitriptyline, lorazepam, iron, dicyclomine, olanzapine, seroquel, ursodiol Code status: Full Dispo: Admit to medical
[2019-06-20] MEDS ORDERED: HYDROmorphone 0.5 MG/0.5 ML SYRINGE ONE (03:45)
[2019-06-20] MEDS ORDERED: Acetaminophen 325 MG TAB PO PRN (05:24)
[2019-06-20] MEDS ORDERED: Clotrimazole 1 % Cream 30 GM TUBE TOP PRN (05:55)
[2019-06-20] MEDS: Sodium Chloride 0.9% 1,000 ML IV SCH ×2 (06:20→16:53)
[2019-06-20] MEDS ORDERED: Ondansetron ODT 4 MG TAB PER TUBE PRN (06:25)
[2019-06-20] MEDS ORDERED: Sodium Chloride 0.9% (PF) 10 ML VIAL FS PRN (06:30)
[2019-06-20 06:43] VITALS: BMI 17.9
[2019-06-20] MEDS: Morphine 4 MG/ML VIAL SLOW IVP PRN ×4 (07:18→22:48)
[2019-06-20] MEDS: Piperacillin/Tazobactam 3.375 GM in Sodium Chloride 0.9% 100 ML IVPB SCH ×3 (07:40→20:29)
[2019-06-20] MEDS: Lorazepam 1 MG TAB PER TUBE SCH ×3 (08:41→20:31)
[2019-06-20] MEDS: Dicyclomine 20 MG TAB PER TUBE SCH ×3 (08:41→20:31)
[2019-06-20] MEDS: OLANZapine 5 MG TAB PER TUBE SCH ×4 (08:43→20:31)
[2019-06-20] MEDS: Pantoprazole 40 MG VIAL IVP SCH (08:44)
--- NOTE | 2019-06-20 08:46 | RAD ---
EXAM: Chest one view: HISTORY: Fever COMPARISON: 01/23/2018 FINDINGS: Left-sided central line access catheter. Heart size: Within normal limits. Lungs: Clear of acute process. No evidence for pneumonia, pleural effusion, acute edema, or pneumothorax, or other significant acute process. IMPRESSION: No significant acute intrathoracic disease.
[2019-06-20] MEDS: Vancomycin HCl 500 MG in Sodium Chloride 0.9% 100 ML IVPB SCH ×3 (08:47→20:35)
[2019-06-20] MEDS: Amitriptyline HCl 25 MG TAB PER TUBE SCH ×2 (08:49→20:31)
[2019-06-20] MEDS: Enoxaparin Sodium 30 MG/0.3 ML SYRINGE SC SCH (08:52)
[2019-06-20] MEDS: carBAMazepine 100 mg Chewable Tablet PER TUBE SCH ×3 (08:53→20:30)
[2019-06-20] MEDS ORDERED: carBAMazepine 20 MG/ML ORAL SUSP PO SCH (09:00)
[2019-06-20] MEDS ORDERED: carBAMazepine 100 mg Chewable Tablet PO SCH (09:00)
[2019-06-20] MEDS: URSODIOL PER TUBE SCH ×3 (09:35→20:33)
--- NOTE | 2019-06-20 10:55 | HP ---
HISTORY OF PRESENT ILLNESS: I have examined the patient. I have discussed the case with Dr. Tello Ramos and agree with his assessment and plan. Orquidea Cartwright is a 34-year-old female with a history of Rett syndrome, who presented to the emergency room last night with fever. She also had an abnormal urinalysis and presumed urinary tract infection with possible sepsis. She has been admitted for further treatment. This morning, she is evidently awake and alert and appears to be in no acute distress. PHYSICAL EXAMINATION: GENERAL: On exam, she is currently afebrile. EARS, NOSE, AND THROAT: No erythema or exudate. CARDIAC: Heart, rhythm regular. No gallop or murmur. LUNGS: Clear without rales or wheezes. ABDOMEN: Flat, soft. She does have a G-tube in the left upper quadrant and an ileostomy bag in the right lower quadrant. LABORATORY DATA: CBC; white count 5900, hemoglobin 10.2 and hematocrit 29.9 with an MCV of 94. Chemistry; sodium 145, potassium 3.8, chloride 110, bicarb 24, BUN 24, creatinine 0.46. Liver enzymes slightly elevated with an AST of 48 and ALT of 62. ASSESSMENT: Urinary tract infection with possible sepsis. PLAN: Admit broad-spectrum antibiotics. Fluids. Job ID: [id number]
[2019-06-20] MEDS ORDERED: Morphine 4 MG/ML VIAL SLOW IVP SCH (13:48)
[2019-06-20] MEDS ORDERED: VANCOMYCIN HCL IVPB SCH (14:00)
[2019-06-20] MEDS ORDERED: SODIUM CHLORIDE 0.9% IVPB SCH (14:00)
[2019-06-20] MEDS ORDERED: FAT EMULSION IV SCH ×2 (22:00→23:59)
[2019-06-20] MEDS ORDERED: SODIUM ACETATE IV SCH ×2 (22:00→23:59)
[2019-06-20] MEDS ORDERED: SODIUM CHLORIDE IV SCH ×2 (22:00→23:59)
[2019-06-20] MEDS ORDERED: [UNRECOGNIZED DRUG - OTHER] IV SCH ×2 (22:00→23:59)
[2019-06-21] MEDS: SODIUM ACETATE IV SCH (00:10)
[2019-06-21] MEDS: [UNRECOGNIZED DRUG - OTHER] IV SCH (00:10)
[2019-06-21] MEDS: SODIUM CHLORIDE IV SCH (00:10)
[2019-06-21] MEDS: FAT EMULSION IV SCH (00:10)
[2019-06-21] MEDS: Piperacillin/Tazobactam 3.375 GM in Sodium Chloride 0.9% 100 ML IVPB SCH ×4 (02:57→20:10)
[2019-06-21] MEDS: Vancomycin HCl 500 MG in Sodium Chloride 0.9% 100 ML IVPB SCH ×4 (02:58→17:52)
[2019-06-21] MEDS: Morphine 4 MG/ML VIAL SLOW IVP PRN ×5 (03:00→20:18)
[2019-06-21 05:27] LABS: #Lymphocytes 1.3 thou/uL (1.20-3.40); #Monocytes 0.4 thou/uL (0.11-0.59); #Neutrophils 2.6 thou/uL (1.40-6.50); %Basophils 0.2 % (0.0-1.0); %Lymphocytes 29.2 % (21.0-51.0); %Monocytes 9.8 % (0.0-10.0); %Neutrophils 59.8 % (42.0-75.0); Hemoglobin 9.2 g/dL (12.0-16.0); Mean Corpuscular HGB CONC 34.5 g/dL (32.0-36.0); Mean Corpuscular Hemoglobin 32.6 pg (27.0-31.0); Mean Corpuscular Volume 94.6 fL (78.0-98.0); Mean Platelet Volume 7.3 fL (7.4-10.4); Platelet Count 122 thou/uL (130-400); RBC Distribution Width 12.4 % (11.5-14.5); Red Blood Cell (RBC) Count 2.83 mill/uL (4.20-5.40); White Blood Cell (WBC) Count 4.3 thou/uL (4.8-10.8)
[2019-06-21 05:47] LABS: ALT (SGPT) 59 U/L (8-55); AST (SGOT) 54 U/L (5-34); Albumin 2.5 g/dL (3.5-5.0); Alkaline Phosphatase 546 U/L (40-150); Anion Gap 13 mmol/L (10-20); BUN (Urea Nitrogen) 16 mg/dL (7.0-18.7); Bilirubin, Total 0.5 mg/dL (0.2-1.2); Calc. Creatinine Clearance 117 mL/min (70-130); Calcium 9.1 mg/dL (7.8-10.44); Carbon Dioxide 23 mmol/L (22-29); Chloride 109 mmol/L (98-107); Estimated GFR-MDRD Greater than 90; Globulin 4.5 g/dL (2.4-3.5); Glucose 110 mg/dL (70-105); Potassium 3.5 mmol/L (3.5-5.1); Sodium 141 mmol/L (136-145)
--- NOTE | 2019-06-21 07:15 | PDOC.FM ---
- Subjective Subjective: pt resting comfortably in bed, mother at bedside reports pt not in pain, at baseline as far as alertness - Objective Vital Signs & Weight: Vital Signs (12 hours) Temp Pulse Resp BP Pulse Ox 06/21/19 03:57 97.7 F 95 16 130/93 H 93 L 06/21/19 00:28 98.9 F 78 16 113/77 92 L 06/20/19 20:11 98.0 F 103 H 16 135/93 H 100 Weight Admit Weight 43.091 kg Weight 43.091 kg I&O: 06/20/19 06/21/19 06/22/19 06:59 06:59 06:59 Intake Total 75 1500 Output Total 800 2100 Balance -725 -600 Result Diagrams: 06/21/19 05:06 06/21/19 05:06 Phys Exam - Physical Examination Constitutional: NAD HEENT: moist MMs Neck: full ROM Gastrointestinal: no distention Musculoskeletal: no edema Neurological: moves all 4 limbs Psychiatric: normal affect Skin: no rash Dx/Plan (1) Sepsis Code(s): A41.9 - SEPSIS, UNSPECIFIED ORGANISM Status: Acute (2) UTI (urinary tract infection) Status: Acute Qualifiers: Urinary tract infection type: acute pyelonephritis Qualified Code(s): N10 - Acute pyelonephritis (3) Chronic pain disorder Code(s): G89.4 - CHRONIC PAIN SYNDROME Status: Chronic (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 Pt with indwelling polanco - recent Klebsiella UTI that was pansensitive, except macrobid. - hx of line infections, yeast in the past - blood cx growing coag neg staph- possible contaminant - UCx possible e. coli- pt most likely colonized with multiple organisms, CFU> 100,000 though so likely infection -Continue vanc and zosyn, await for 48hr results -procalcitonin wnl Rett Syndrome Pt with multiple comorbidities related to this including gastroparesis, seizures , non-verbal, contractures, scoliosis, urinary retention. She is kept NPO at all times and gets decompression through the G tube as well as her meds that way. She has a L subclavian Ward that she gets TPN and NS @ 50mL/hr through. She has an iliostomy and chronic polanco. She has chronic pain that is treated with opioids including fentanyl patch and dilaudid. -Continue home pain regimen -Consult rn documentation specialist for TPN -DC fluids -Continue home carbamazepine, bethanechol, amitriptyline, lorazepam, iron, dicyclomine, olanzapine, seroquel, ursodiol dispo: continue to monitor and treat for multiple possible sources of infection Addendum - Attending - Attending Attestation Date/Time: 06/21/19 6880 I personally evaluated the patient and discussed the management with Dr. Reddy. I agree with the History, Examination, Assessment and Plan documented above with any addition or exceptions noted below. Very complicated patient who is familiar to me here with fever and altered mentation. This usually represents an infection. Her UA was consistent with UTI , and fortunately it appears we caught it before it becomes systemic. She continues on broad spectrum abx and is doing well. Mom reports improvement in behavior and interaction. Her PCT is downtrending. Awaiting culture results. She continues on home TPN. Her issue currently is pain control, as at home she is on very high doses or narcotics. This has been an issue in previous hospitalizations as well. Will discuss with anesthesia again since patient is rx 'd Dilaudid at home. Awaiting culture results and hopefully will be able to get her out soon as we seem to have caught this infection early.
[2019-06-21 08:34] LABS: Vancomycin, Trough 22.8 ug/mL
[2019-06-21] MEDS: URSODIOL PER TUBE SCH ×3 (08:47→20:16)
[2019-06-21] MEDS: Dicyclomine 20 MG TAB PER TUBE SCH ×3 (08:48→20:13)
[2019-06-21] MEDS: carBAMazepine 100 mg Chewable Tablet PER TUBE SCH ×3 (08:48→20:11)
[2019-06-21] MEDS: Amitriptyline HCl 25 MG TAB PER TUBE SCH ×2 (08:48→20:18)
[2019-06-21] MEDS: Lorazepam 1 MG TAB PER TUBE SCH ×3 (08:48→20:13)
[2019-06-21] MEDS: OLANZapine 5 MG TAB PER TUBE SCH ×4 (08:49→20:11)
[2019-06-21] MEDS: Pantoprazole 40 MG VIAL IVP SCH (08:49)
[2019-06-21] MEDS: Enoxaparin Sodium 30 MG/0.3 ML SYRINGE SC SCH (08:49)
[2019-06-21] MEDS: fentaNYL 75 mcg/hour Patch TD SCH (10:57)
[2019-06-22] MEDS: Morphine 4 MG/ML VIAL SLOW IVP PRN ×5 (00:19→20:43)
[2019-06-22] MEDS: FAT EMULSION IV SCH (00:20)
[2019-06-22] MEDS: SODIUM CHLORIDE IV SCH (00:20)
[2019-06-22] MEDS: SODIUM ACETATE IV SCH (00:20)
[2019-06-22] MEDS: [UNRECOGNIZED DRUG - OTHER] IV SCH (00:20)
[2019-06-22] MEDS: Piperacillin/Tazobactam 3.375 GM in Sodium Chloride 0.9% 100 ML IVPB SCH ×4 (02:14→20:24)
[2019-06-22] MEDS: Vancomycin HCl 500 MG in Sodium Chloride 0.9% 100 ML IVPB SCH (03:41)
[2019-06-22] MEDS ORDERED: fentaNYL 75 mcg/hour Patch TD SCH (06:00)
--- NOTE | 2019-06-22 06:53 | PDOC.FM ---
- Subjective Subjective: pt resting comfortably in bed, mom at bedside reports pain controlled, afebrile - Objective Vital Signs & Weight: Vital Signs (12 hours) Temp Pulse Resp BP Pulse Ox 06/22/19 03:44 98 F 96 18 132/84 98 06/22/19 00:00 99.1 F 109 H 18 128/90 97 06/21/19 20:00 99.5 F 107 H 18 148/96 H 98 Weight Admit Weight 43.091 kg Weight 43.091 kg I&O: 06/20/19 06/21/19 06/22/19 06:59 06:59 06:59 Intake Total 75 2808 2812 Output Total 800 9803 8744 Balance -337 -841 -031 Result Diagrams: 06/21/19 05:06 06/21/19 05:06 Phys Exam - Physical Examination Constitutional: NAD HEENT: moist MMs Neck: full ROM Gastrointestinal: no distention Musculoskeletal: no edema Skin: no rash Dx/Plan (1) Sepsis Code(s): A41.9 - SEPSIS, UNSPECIFIED ORGANISM Status: Acute (2) UTI (urinary tract infection) Status: Acute Qualifiers: Urinary tract infection type: acute pyelonephritis Qualified Code(s): N10 - Acute pyelonephritis (3) Chronic pain disorder Code(s): G89.4 - CHRONIC PAIN SYNDROME Status: Chronic (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 Pt with indwelling polanco - recent Klebsiella UTI that was pansensitive, except macrobid. - hx of line infections, yeast in the past - blood cx growing coag neg staph- possible contaminant - UCx possible e. coli, CFU>100,000 though so likely infection -Continue vanc and zosyn, await for 48hr results -procalcitonin downtrending - Dr. Dinh consulted to help with abx collection Rett Syndrome Pt with multiple comorbidities related to this including gastroparesis, seizures , non-verbal, contractures, scoliosis, urinary retention. She is kept NPO at all times and gets decompression through the G tube as well as her meds that way. She has a L subclavian Ward that she gets TPN and NS @ 50mL/hr through. She has an iliostomy and chronic polanco. She has chronic pain that is treated with opioids including fentanyl patch and dilaudid. -Continue home pain regimen -Consult electric lineman for TPN -DC fluids -Continue home carbamazepine, bethanechol, amitriptyline, lorazepam, iron, dicyclomine, olanzapine, seroquel, ursodiol dispo: DC with appropriate abx regimen Addendum - Attending - Attending Attestation Date/Time: 06/22/19 7742 I personally evaluated the patient and discussed the management with Dr. Reddy. I agree with the History, Examination, Assessment and Plan documented above with any addition or exceptions noted below. Patient overall stable. Continues on broad spectrum abx for sepsis. Growing GNR from urine, and GP cocci from blood and line. Though I do not really think she has gram positive bacteremia, have to maintain suspicion and continue Vanc, await cultures. Due to frequent issues with infection due to her chronic medical conditions, consider ID consult for help with meterman abx mgmt. Continue other chronic meds.
[2019-06-22] MEDS: carBAMazepine 100 mg Chewable Tablet PER TUBE SCH ×3 (08:42→20:43)
[2019-06-22] MEDS: OLANZapine 5 MG TAB PER TUBE SCH ×4 (08:42→20:24)
[2019-06-22] MEDS: Dicyclomine 20 MG TAB PER TUBE SCH ×3 (08:42→20:24)
[2019-06-22] MEDS: URSODIOL PER TUBE SCH ×3 (08:42→20:27)
[2019-06-22] MEDS: Lorazepam 1 MG TAB PER TUBE SCH ×3 (08:43→20:24)
[2019-06-22] MEDS: Enoxaparin Sodium 30 MG/0.3 ML SYRINGE SC SCH (08:43)
[2019-06-22] MEDS: Amitriptyline HCl 25 MG TAB PER TUBE SCH ×2 (08:43→20:24)
[2019-06-22] MEDS: Pantoprazole 40 MG VIAL IVP SCH (08:45)
[2019-06-22 10:21] LABS: Vancomycin, Trough 10.6 ug/mL
[2019-06-22] MEDS: Vancomycin HCl 750 MG in Sodium Chloride 0.9% 250 ML 250 ML IVPB SCH ×2 (11:40→18:14)
--- NOTE | 2019-06-22 23:34 | CON ---
DATE OF CONSULTATION: REASON FOR CONSULTATION: Bacteremia. HISTORY OF PRESENT ILLNESS: A 34-year-old who has a severe neurodegenerative disease which has left her with pretty much in a vegetative state. I saw her last time a few years ago, she had then a diagnosis of Rett syndrome with severe gastroparesis requiring chronic TPN through a tunneled Ward catheter, also seizure disorder, prior infections of the access for TPN and she has G-tube and jejunostomy tube and a chronic indwelling Geiger catheter. At this time, she comes in with fever. She is cared for by family and they noticed that her temp was 102.5. Initial findings included BP 130/100, pulse 133, temperature 99.1, respiratory rate 24. She is unable to communicate, but awake. She is unable to interact verbally. Initial findings include some areas of superficial skin injury in the left side of the lower lumbosacral spine area skin. She has a tunneled Ward catheter in the left subclavian position with normal-appearing exit site, NG tube and a jejunostomy tube as well and an indwelling Geiger catheter. Initial white cell count 5.9, hemoglobin 10.2, platelets 145. Chloride 109, creatinine 0.47. AST 54, ALT 59. Urinalysis with greater than 50 wbc's. Microbiology with coagulase negative Staph from one central line sample obtained at 1:59 and a peripheral IV sample obtained at 1:48. This was identified as Staphylococcus epidermidis. Urine had another gram-negative arianna identified as Pseudomonas. Currently, Ms. Cartwright keeps her eyes closed because of her neurological impairment. It was impossible to interact with the patient. PAST MEDICAL HISTORY: Rett syndrome with gastrostomy, jejunostomy, chronic indwelling Geiger catheter and left tunneled Ward line catheter for TPN administration. The last time this catheter was exchanged was about a year ago in January 2018. Also history of gastroparesis. PAST SURGICAL HISTORY: As above, left hamstring release, Achilles tendon release. FAMILY HISTORY: Noncontributory. SOCIAL HISTORY: Lives at home with mother as the resident care assistant. CURRENT MEDICATIONS: 1. Tylenol. 2. Elavil. 3. Urecholine. 4. Tegretol. 5. Bentyl. 6. Lovenox. 7. TPN. 8. Duragesic. 9. Ativan. 10. Zyprexa. 11. Zofran. 12. Zosyn. 13. Seroquel. 14. Vancomycin. PHYSICAL EXAMINATION: VITAL SIGNS: T-max here in the hospital was 99.5, BP 130/89, pulse 97, respirations 14, O2 saturation 99. SKIN: As noted above with stage 2 area of ulceration in the left lumbosacral skin region. She has an indwelling Geiger catheter and gastrostomy tube exit site appears normal, jejunostomy tube as well and a left tunneled Ward catheter with normal appearing exit site. She has a little bit of temporal wasting. HEENT: She keeps the eyes closed and could not evaluate her oral cavity. LUNGS: Symmetric air entry. She could not take deep breath, so it is hard to evaluate the bases. CARDIAC: S1 and S2. Regular rate without murmurs. No S3. ABDOMEN: Soft. Not distended. Bowel sounds are present. No bladder distention. EXTREMITIES: She does not move any of the extremities. LABORATORY DATA: 1. White cell count has been down to 4.3, hemoglobin 9.2, MCV 94, platelets 122. Procalcitonin 0.12. Chest x-ray from June 20 with no significant intrathoracic disease. ASSESSMENT: 1. Rett syndrome with severe neurological impairment, vegetative state. 2. Requirement for TPN and indwelling Geiger catheter. 3. Documented fever and abnormalities in urinalysis as well as urine and blood cultures. DISCUSSION: The differential diagnosis includes colonization of the Ward catheter by coagulase-negative Staph, which is likely in view of the sample results noted above. Staphylococcus epidermidis is a more meaningful organism than other types of coagulase-negative staphylococci. We have the proper sample drawn from central line and from peripheral site with concurrence in the types of organisms , so that makes the likelihood of device colonization high. This type of colonization by coagulase-negative Staph is amenable to decolonization with vancomycin administered as a dwell solution through the ports. It is important that both ports need to be treated after the administration or utilization of the access. This should be done after each use and the dwell solution needs to be made by the pharmacist here at [facility]. I would recommend 2 weeks of dwell solution after utilization of the central line at the same time administration of vancomycin to continue with a trough level around 15 mcg/mL. The dwell vancomycin solution achieves a very high levels of the antimicrobial in the lumen of the catheter and allows for eradication of the colonization in about 80% of the cases. The other concern would be the urinary tract and will be impossible to rule out an invasive infection. Last abdomen and pelvis CT was done in 2014 and I would advise repeat at least a stone protocol series or just a regular ultrasound to evaluate for obstruction and stone disease. I would not treat this urinary findings for more than a few days since she will have to continue with indwelling Geiger catheter and we do not have the expectation of sterilization of the urine in this patient. After 2 weeks of vancomycin lock solution, then interrupt the treatment and then follow up the results of her blood cultures after that. Job ID: [id number] MTDD
[2019-06-23] MEDS: [UNRECOGNIZED DRUG - OTHER] IV SCH ×2 (00:27→22:57)
[2019-06-23] MEDS: FAT EMULSION IV SCH ×2 (00:27→22:57)
[2019-06-23] MEDS: POTASSIUM CHLORIDE IV SCH ×2 (00:27→22:57)
[2019-06-23] MEDS: SODIUM CHLORIDE IV SCH ×2 (00:27→22:57)
[2019-06-23] MEDS: Piperacillin/Tazobactam 3.375 GM in Sodium Chloride 0.9% 100 ML IVPB SCH ×4 (01:19→20:00)
[2019-06-23] MEDS: Morphine 4 MG/ML VIAL SLOW IVP PRN ×5 (03:08→20:18)
[2019-06-23] MEDS: Vancomycin HCl 750 MG in Sodium Chloride 0.9% 250 ML 250 ML IVPB SCH ×3 (03:08→18:00)
--- NOTE | 2019-06-23 06:20 | PDOC.FM ---
- Subjective Subjective: pt resting comfortably in bed, mom reports no events overnight, afebrile - Objective Vital Signs & Weight: Vital Signs (12 hours) Temp Pulse Resp BP Pulse Ox 06/23/19 04:31 97.5 F L 90 16 146/93 H 99 06/23/19 00:05 97.6 F 91 16 116/77 100 06/22/19 21:06 145/97 H 06/22/19 20:34 97.9 F 88 16 152/101 H 98 Weight Admit Weight 43.091 kg Weight 43.091 kg I&O: 06/21/19 06/22/19 06/23/19 06:59 06:59 06:59 Intake Total 2808 2812 600 Output Total 3656 8738 1090 Balance -842 -413 -240 Result Diagrams: 06/23/19 06:18 06/23/19 06:18 Phys Exam - Physical Examination Constitutional: NAD HEENT: moist MMs Neck: no JVD Gastrointestinal: no distention Musculoskeletal: no edema Skin: no rash Dx/Plan (1) Sepsis Code(s): A41.9 - SEPSIS, UNSPECIFIED ORGANISM Status: Acute (2) UTI (urinary tract infection) Status: Acute Qualifiers: Urinary tract infection type: acute pyelonephritis Qualified Code(s): N10 - Acute pyelonephritis (3) Chronic pain disorder Code(s): G89.4 - CHRONIC PAIN SYNDROME Status: Chronic (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 Pt with indwelling ploanco - recent Klebsiella UTI that was pansensitive, except macrobid. - hx of line infections, yeast in the past - blood cx growing coag neg staph from line as well - UCx shows multiple organisms - Dr. Dinh consulted to help with abx selection - vanc for 2 wks, will treat UTI per sensitivities - renal US pending Rett Syndrome Pt with multiple comorbidities related to this including gastroparesis, seizures , non-verbal, contractures, scoliosis, urinary retention. She is kept NPO at all times and gets decompression through the G tube as well as her meds that way. She has a L subclavian Ward that she gets TPN and NS @ 50mL/hr through. She has an iliostomy and chronic polanco. She has chronic pain that is treated with opioids including fentanyl patch and dilaudid. -Continue home pain regimen -Consult hide and skin processing worker for TPN -Continue home carbamazepine, bethanechol, amitriptyline, lorazepam, iron, dicyclomine, olanzapine, seroquel, ursodiol dispo: DC with appropriate abx regimen, CM to assist Addendum - Attending - Attending Attestation Date/Time: 06/23/19 0909 I personally evaluated the patient and discussed the management with Dr. Reddy. I agree with the History, Examination, Assessment and Plan documented above with any addition or exceptions noted below. Patient overall stable. Abx recs given by ID yesterday, will work with CM to set that up. Final cx results pending. Continue current abx therapy. Will obtain CT scan stone protocol per ID recs. Anticipate nearing discharge.
[2019-06-23 06:33] LABS: #Eosinphils 0.1 thou/uL (0.0-0.7); #Lymphocytes 1.7 thou/uL (1.20-3.40); #Monocytes 0.3 thou/uL (0.11-0.59); %Basophils 0.3 % (0.0-1.0); %Eosinophils 1.4 % (0.0-10.0); %Lymphocytes 41.1 % (21.0-51.0); %Monocytes 6.9 % (0.0-10.0); %Neutrophils 50.2 % (42.0-75.0); Hemoglobin 8.7 g/dL (12.0-16.0); Mean Corpuscular HGB CONC 33.4 g/dL (32.0-36.0); Mean Corpuscular Hemoglobin 31.9 pg (27.0-31.0); Mean Corpuscular Volume 95.5 fL (78.0-98.0); Mean Platelet Volume 6.9 fL (7.4-10.4); Platelet Count 119 thou/uL (130-400); RBC Distribution Width 12.3 % (11.5-14.5); Red Blood Cell (RBC) Count 2.72 mill/uL (4.20-5.40); White Blood Cell (WBC) Count 4.1 thou/uL (4.8-10.8)
[2019-06-23 06:55] LABS: ALT (SGPT) 62 U/L (8-55); AST (SGOT) 47 U/L (5-34); Albumin 2.6 g/dL (3.5-5.0); Alkaline Phosphatase 555 U/L (40-150); Anion Gap 10 mmol/L (10-20); BUN (Urea Nitrogen) 21 mg/dL (7.0-18.7); Bilirubin, Total 0.4 mg/dL (0.2-1.2); Calc. Creatinine Clearance 119 mL/min (70-130); Calcium 8.8 mg/dL (7.8-10.44); Carbon Dioxide 25 mmol/L (22-29); Chloride 110 mmol/L (98-107); Estimated GFR-MDRD Greater than 90; Globulin 4.3 g/dL (2.4-3.5); Glucose 100 mg/dL (70-105); Potassium 3.5 mmol/L (3.5-5.1); Protein, Total 6.9 g/dL (6.0-8.3); Sodium 141 mmol/L (136-145)
[2019-06-23] MEDS: Dicyclomine 20 MG TAB PER TUBE SCH ×3 (08:16→20:01)
[2019-06-23] MEDS: Amitriptyline HCl 25 MG TAB PER TUBE SCH ×2 (08:16→20:01)
[2019-06-23] MEDS: Lorazepam 1 MG TAB PER TUBE SCH ×3 (08:17→20:01)
[2019-06-23] MEDS: carBAMazepine 100 mg Chewable Tablet PER TUBE SCH ×3 (08:17→20:00)
[2019-06-23] MEDS: OLANZapine 5 MG TAB PER TUBE SCH ×4 (08:17→20:01)
[2019-06-23] MEDS: URSODIOL PER TUBE SCH ×3 (08:18→20:04)
[2019-06-23] MEDS: Enoxaparin Sodium 30 MG/0.3 ML SYRINGE SC SCH (08:20)
[2019-06-23] MEDS: Pantoprazole 40 MG VIAL IVP SCH (08:20)
--- NOTE | 2019-06-23 10:35 | ULT ---
Exam: Bilateral renal ultrasound complete: HISTORY: Urinary tract infection COMPARISON: None FINDINGS: Right kidney: 9.6 x 5 x 5.9 cm Left kidney: 9.8 x 5.4 x 6.3 cm No renal hydronephrosis. No evidence for abnormal perinephric process. No solid or cystic renal mass. Unremarkable appearing bladder. Geiger catheter in bladder. IMPRESSION: Unremarkable bilateral renal ultrasound. No hydronephrosis or perinephric process.
--- NOTE | 2019-06-23 15:15 | PQF ---
IRA GILLESPIEKELLY *r [id number] SURG A- [id number] CLINICAL DOCUMENTATION IMPROVEMENT CLARIFICATION FORM: ICD-10 Updated PLEASE DO AN ADDENDUM TO THE PROGRESS NOTE WITH ANY DOCUMENTATION UPDATES OR ADDITIONS AND CARRY THROUGH TO DC SUMMARY. THANK YOU. DATE: 06/23/2019 ATTN: DR. Yovanny AGUILA Please exercise your independent, professional judgment in responding to the clarification form. Clinical indicators are provided on the bottom of this form for your review. Please check appropriate box(es): [ x] Sepsis due to: UTI Due to: INDWELLING CAGLE CATHETER [ ] Sepsis NOT D/T UTI Due to: INDWELLING CAGLE CATHETER [ ] Localized infection without sepsis [ ] Other diagnosis [ ] Unable to determine In addition, please specify: Present on Admission (POA): [ X ] Yes [ ] No [ ] Unable to determine For continuity of documentation, please document condition throughout progress notes and discharge summary. Thank You. CLINICAL INDICATORS - SIGNS / SYMPTOMS / LABS 06/20 ED : PULSE 117-133, TEMP 101.2, RESP 22-26 06/20 H&P ([facility]) SEPSIS- LIKELY 2/2 TO UTI, R/O CENTRAL LINE CONTAMINATION FEBRILE WITH TACHYCARDIA AND TACHYPNEA-INDWELLING CAGLE, RECENT UTI, FINISHED KEFLEX 2 WEEKS AGO. 06/21 - 06/23 PN (MINGO) SEPSIS 2/2 UTI RISK: HX : RETT SYNDROME, INDWELLING CAGLE CATHETER PRESENT ON ARRIVAL , CENTRAL LINE PLACEMENT PRESENT ON ARRIVAL ( [facility]/ H&P 06/20) TREATMENTS: BLOOD CULTURES( 06/20) URINE CULTURE ( 06/20) ID CONSULT (PILAR/ 06/22) ZOSYN IV (06/20-PRESENT) VANCOMYCIN IV (06/22-PRESENT) THANK YOU! BRIAN (This form is maintained as a part of the permanent medical record) 2014 [employer] All Rights Reserved [email or web address] [phone] MTDD
[2019-06-24] MEDS: Morphine 4 MG/ML VIAL SLOW IVP PRN ×5 (00:27→14:44)
[2019-06-24] MEDS: Piperacillin/Tazobactam 3.375 GM in Sodium Chloride 0.9% 100 ML IVPB SCH ×2 (01:07→08:40)
[2019-06-24] MEDS: Vancomycin HCl 750 MG in Sodium Chloride 0.9% 250 ML 250 ML IVPB SCH ×2 (02:21→11:34)
[2019-06-24 05:10] LABS: #Eosinphils 0.1 thou/uL (0.0-0.7); #Lymphocytes 1.9 thou/uL (1.20-3.40); #Monocytes 0.2 thou/uL (0.11-0.59); %Eosinophils 2.3 % (0.0-10.0); %Lymphocytes 45.1 % (21.0-51.0); %Monocytes 5.1 % (0.0-10.0); %Neutrophils 47.5 % (42.0-75.0); Hemoglobin 9.1 g/dL (12.0-16.0); Mean Corpuscular HGB CONC 33.8 g/dL (32.0-36.0); Mean Corpuscular Volume 94.8 fL (78.0-98.0); Mean Platelet Volume 7.6 fL (7.4-10.4); Platelet Count 123 thou/uL (130-400); RBC Distribution Width 12.4 % (11.5-14.5); Red Blood Cell (RBC) Count 2.85 mill/uL (4.20-5.40); White Blood Cell (WBC) Count 4.3 thou/uL (4.8-10.8)
[2019-06-24 05:30] LABS: ALT (SGPT) 67 U/L (8-55); AST (SGOT) 56 U/L (5-34); Albumin 2.5 g/dL (3.5-5.0); Alkaline Phosphatase 549 U/L (40-150); Anion Gap 12 mmol/L (10-20); BUN (Urea Nitrogen) 21 mg/dL (7.0-18.7); Bilirubin, Total 0.4 mg/dL (0.2-1.2); Calc. Creatinine Clearance 110 mL/min (70-130); Calcium 9.1 mg/dL (7.8-10.44); Carbon Dioxide 22 mmol/L (22-29); Chloride 113 mmol/L (98-107); Estimated GFR-MDRD Greater than 90; Globulin 4.5 g/dL (2.4-3.5); Glucose 89 mg/dL (70-105); Potassium 3.6 mmol/L (3.5-5.1); Sodium 143 mmol/L (136-145)
--- NOTE | 2019-06-24 06:24 | PDOC.FM ---
- Subjective Subjective: pt resting comfortably in bed, mother at bedside denies events overnight - Objective Vital Signs & Weight: Vital Signs (12 hours) Temp Pulse Resp BP Pulse Ox 06/24/19 03:57 97.8 F 85 16 149/100 H 100 06/24/19 01:31 118/82 06/24/19 00:12 97.7 F 84 16 152/107 H 99 06/23/19 19:50 97.5 F L 92 16 125/86 100 Weight Admit Weight 43.091 kg Weight 43.091 kg I&O: 06/22/19 06/23/19 06/24/19 06:59 06:59 06:59 Intake Total 2812 600 1648 Output Total 3225 3090 1180 Balance -413 -6381 468 Result Diagrams: 06/24/19 04:06 06/24/19 04:06 Phys Exam - Physical Examination Constitutional: NAD HEENT: moist MMs Neck: supple Gastrointestinal: no distention Musculoskeletal: no edema Skin: no rash Dx/Plan (1) Sepsis Code(s): A41.9 - SEPSIS, UNSPECIFIED ORGANISM Status: Acute (2) UTI (urinary tract infection) Status: Acute Qualifiers: Urinary tract infection type: acute pyelonephritis Qualified Code(s): N10 - Acute pyelonephritis (3) Chronic pain disorder Code(s): G89.4 - CHRONIC PAIN SYNDROME Status: Chronic (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 Pt with indwelling polanco - recent Klebsiella UTI that was pansensitive, except macrobid. - hx of line infections, yeast in the past - blood cx growing coag neg staph from line as well - UCx shows multiple organisms - Dr. Dinh consulted to help with abx selection - vanc for 2 wks, will treat UTI per sensitivities - renal US pending Rett Syndrome Pt with multiple comorbidities related to this including gastroparesis, seizures , non-verbal, contractures, scoliosis, urinary retention. She is kept NPO at all times and gets decompression through the G tube as well as her meds that way. She has a L subclavian Ward that she gets TPN and NS @ 50mL/hr through. She has an iliostomy and chronic polanco. She has chronic pain that is treated with opioids including fentanyl patch and dilaudid. -Continue home pain regimen -Consult power house control room operator for TPN -Continue home carbamazepine, bethanechol, amitriptyline, lorazepam, iron, dicyclomine, olanzapine, seroquel, ursodiol dispo: DC with appropriate abx regimen, CM to assist Addendum - Attending - Attending Attestation Date/Time: 06/24/19 0750 I personally evaluated the patient and discussed the management with Dr. Reddy. I agree with the History, Examination, Assessment and Plan documented above with any addition or exceptions noted below. Patient overall stable. We are awaiting input from ID regarding the direct instructions for her catheter instillation of Vanc and superintendent terminal abx regimen. Once that is set up and CM has set up for outpatient treatment, she is overall stable for discharge.
[2019-06-24 07:59] VITALS: BP 146/100; TEMP 97.9
[2019-06-24] MEDS: Amitriptyline HCl 25 MG TAB PER TUBE SCH (09:26)
[2019-06-24] MEDS: Dicyclomine 20 MG TAB PER TUBE SCH ×2 (09:26→14:47)
[2019-06-24] MEDS: Lorazepam 1 MG TAB PER TUBE SCH ×2 (09:27→14:47)
[2019-06-24] MEDS: carBAMazepine 100 mg Chewable Tablet PER TUBE SCH ×2 (09:27→14:46)
[2019-06-24] MEDS: OLANZapine 5 MG TAB PER TUBE SCH ×2 (09:27→14:48)
[2019-06-24] MEDS: Pantoprazole 40 MG VIAL IVP SCH (09:28)
[2019-06-24] MEDS: URSODIOL PER TUBE SCH ×2 (09:29→14:49)
[2019-06-24] MEDS: Enoxaparin Sodium 30 MG/0.3 ML SYRINGE SC SCH (09:56)
[2019-06-24] MEDS: fentaNYL 75 mcg/hour Patch TD SCH (10:08)
--- NOTE | 2019-06-25 13:35 | DIS ---
DATE OF ADMISSION: 06/20/2019 DATE OF DISCHARGE: 06/24/2019 ADMITTING ATTENDING: Sancho Dobson MD CONSULTS: Infectious Disease, Marcus Dinh MD IMAGING: Renal ultrasound reveals no dilatation. Stone located within bilateral kidneys. Chest x-ray reveals no acute cardiothoracic abnormality. DISCHARGE MEDICATIONS: 1. per tube t.i.d. 2. Simethicone 125 mg per tube b.i.d. 3. Carbamazepine 400 mg per tube t.i.d. 4. Bentyl 20 mg per tube t.i.d. 5. Fentanyl 2 patch transdermal q.3 days. 6. Zofran 8 mg per tube t.i.d. p.r.n. 7. Dilaudid 4 mg slow IVP q.3 hours p.r.n. 8. Ferrous sulfate 325 mg tablets 60 mg per tube daily. 9. Nexium 40 mg IV daily. 10. Lorazepam 1 mg per tube t.i.d. 11. Seroquel 100 mg per tube t.i.d. 12. Ursodiol 250 mg per tube t.i.d. 13. Olanzapine 5 mg per tube q.i.d. 14. Clotrimazole 1 application topical b.i.d. p.r.n. 15. Amitriptyline 50 mg per tube b.i.d. 16. Vancomycin 750 mg IV piggyback at 0300, 1100,and 1900. DISCHARGE DIAGNOSIS: Sepsis secondary to urinary tract infection and central venous catheter infection. SECONDARY DIAGNOSIS: Rett syndrome. HISTORY OF PRESENT ILLNESS/HOSPITAL COURSE: Ms. Cartwright is a 34-year-old female with a past medical history significant for Rett syndrome with multiple indwelling catheters and venous lines, presents to the emergency department with fevers and increased agitation. Mother is present and provides all of the history as the patient is nonverbal. Current evaluation completed in the ER revealed likely UTI. Blood cultures were drawn and later blood cultures from peripheral veins and from her Ward line revealed Staph epidermidis and at that time, Infectious Disease was consulted for long-term antibiotic recommendations. The patient initially was placed on vancomycin and Zosyn and improved throughout her hospital stay. Mom reported less agitation. The patient remained afebrile and was stable from that since Dr. Marcus Dinh was consulted to make antibiotic recommendations that included vancomycin in dual formation to be administered at home for 2 weeks. The patient was discharged home in stable condition with this formulation to be administered by her mother, who provides her full-time care. DISCHARGE INSTRUCTIONS: 1. Location: Home. 2. Diet: TPN. 3. Activity: As tolerated. 4. Followup: Followup with PCP, Dr. Rod Richard, in the next [address] Marcus Dinh in 2 weeks for monitoring of vancomycin levels. Job ID: [id number]
== END 2019-06-24 15:50 | disposition home or self-care (01) | DRG 698 ==
LOC: ERS 01:28 → SURG A 03:23
PROVIDERS: ADMIT Family Medicine; ATTEND Family Medicine
DX: T83.518A Infection and inflammatory reaction due to other urinary catheter, initial encounter (principal); A41.9 Sepsis, unspecified organism; R65.20 Severe sepsis without septic shock; F84.2 Rett's syndrome; N39.0 Urinary tract infection, site not specified; M41.9 Scoliosis, unspecified; K31.84 Gastroparesis; D64.9 Anemia, unspecified; Y84.6 Urinary catheterization as the cause of abnormal reaction of the patient, or of later complication, without mention of misadventure at the time of the procedure; G40.909 Epilepsy, unspecified, not intractable, without status epilepticus; G89.4 Chronic pain syndrome; Z88.8 Allergy status to other drugs, medicaments and biological substances; Z79.899 Other long term (current) drug therapy
CPT/HCPCS: 36415; 36416; 71045; 76770; 80053; 80202; 81003; 81015; 83605; 84145; 85025; 87040; 87077; 87086; 87149; 87186; 93005; 96361; 96365; 96367; 96375; A4217; C9113; J1170; J1644; J1650; J2270; J2543; J3010; J3370; J3475; J3480; J3490; J7050

== ENCOUNTER 2019-08-31 18:45 | Inpatient (IN) | payer MEDICARE, MEDICAID ==
[2019-08-31 20:06] LABS: Bacteria/HPF 4+ HPF (None Seen); Bilirubin Negative (Negative); Blood, Urine 2+ (Negative); Clarity Extra Turbid (Clear); Glucose, Urine (Dipstick) Normal (Negative); Leukocyte 500 Leu/uL (Negative); Nitrite Negative (Negative); Protein, Urine (Dipstick) 30 mg/dL (Neg-Trace); RBC/HPF 21-50 HPF (0-3); Squamous Epithelial None Seen HPF (0-3); Urobilinogen Normal mg/dL (Less than 2); WBC/HPF Greater than 50 HPF (0-3)
--- NOTE | 2019-08-31 20:13 | RAD ---
Chest one view HISTORY: Fever. COMPARISON: 06/20/2019. FINDINGS: Cardiac silhouette is magnified by projection. Pulmonary vasculature is unremarkable. Patie nt is rotated rightward. A long, very coiled catheter projects over the midline and left chest. Tip of the right atrium. Uncha nged in position from the prior exam. No lobar consolidation or evidence of pneumothorax. IMPRESSION: Chronic-type findings are stable. No active cardiopulmonary abnormalities are reliably de monstrated.
[2019-08-31 20:36] LABS: #Basophils 0.1 thou/uL (0.0-0.2); #Lymphocytes 2.4 thou/uL (1.20-3.40); #Monocytes 0.6 thou/uL (0.11-0.59); #Neutrophils 5.4 thou/uL (1.40-6.50); %Basophils 1.1 % (0.0-1.0); %Eosinophils 0.3 % (0.0-10.0); %Lymphocytes 28.1 % (21.0-51.0); %Monocytes 6.8 % (0.0-10.0); %Neutrophils 63.7 % (42.0-75.0); Hemoglobin 9.9 g/dL (12.0-16.0); Mean Corpuscular HGB CONC 32.7 g/dL (32.0-36.0); Mean Corpuscular Hemoglobin 29.3 pg (27.0-31.0); Mean Corpuscular Volume 89.6 fL (78.0-98.0); Mean Platelet Volume 7.4 fL (7.4-10.4); Platelet Count 207 thou/uL (130-400); RBC Distribution Width 18.3 % (11.5-14.5); Red Blood Cell (RBC) Count 3.39 mill/uL (4.20-5.40); White Blood Cell (WBC) Count 8.5 thou/uL (4.8-10.8)
[2019-08-31 20:56] LABS: ALT (SGPT) 79 U/L (8-55); AST (SGOT) 76 U/L (5-34); Albumin 2.8 g/dL (3.5-5.0); Alkaline Phosphatase 394 U/L (40-110); Anion Gap 10 mmol/L (10-20); BUN (Urea Nitrogen) 11 mg/dL (7.0-18.7); Bilirubin, Total 1.1 mg/dL (0.2-1.2); Calc. Creatinine Clearance 0 mL/min (70-130); Calcium 8.7 mg/dL (7.8-10.44); Carbon Dioxide 23 mmol/L (22-29); Chloride 107 mmol/L (98-107); Estimated GFR-MDRD Greater than 90; Globulin 4.4 g/dL (2.4-3.5); Glucose 87 mg/dL (70-105); Potassium 3.9 mmol/L (3.5-5.1); Protein, Total 7.2 g/dL (6.0-8.3); Sodium 136 mmol/L (136-145)
[2019-08-31 21:00] LABS: Anisocytosis SLIGHT = 6-15 cells (100X) (0-5/hpf); MDiff Complete? YES
--- NOTE | 2019-08-31 21:05 | PDOC.FPRHP ---
- History of Present Illness Chief Complaint: UTI History of Present Illness: 34yo F with h/o Rett syndrome, MR, seizure presents as transfer from [facility] for Sepsis 2/2 UTI and acute anemia s/p 1u pRBC. Mom states pt awaoke this morning with fever of 101/9. Increased pain and restlessness. Went to [facility] ER where she met sepsis criteria and was transferred to [facility] for further eval and management. Pt has been dealing with UTI off and on for awhile. Just finished an abx last Friday. Home health reports last Friday that urine appeared dirty. They harpreet cx and said it was growing bacteria but didn't have sensitivities. No cough reported. Denies any GI/ bleed. When at ER initially pt was found to have low Hgb of 6.5. Pt transfused 1u pRBC. Pt has chronic polanco in past for past 3 weeks. Mom reports patient has chronic pain. Pt gets IVP dilaudid every 3 hours at home. Pt has chronic anemia, normally runs Hb 8-9. Mom reports had infection of central line in past and has dealt with bacteremia in prior hospitalizations. Rhea- Neurologist Ed ([place]) DEANGELO Richard- PCP ED Course: Transfused 1u pRBC. Given Vanc and Rocephin in ED. - Allergies/Adverse Reactions Allergies Allergy/AdvReac Type Severity Reaction Status Date / Time benzoin Allergy Intermediate Rash Verified 01/22/18 17:33 lamotrigine [From Lamictal] Allergy Mild Severe Verified 02/11/17 16:14 agitation unknown Allergy something Uncoded 01/22/18 17:33 she gets from line placement, ??? - Home Medications Medication Instructions Recorded Confirmed Type Bethanechol Chloride [Urecholine] 7.5 mg PER TUBE TID 07/12/13 06/20/19 History Simethicone [Gas Free] 125 mg PER TUBE TID 07/12/13 06/20/19 History Dicyclomine [Bentyl] 20 mg PER TUBE TID 01/26/14 06/20/19 History carBAMazepine [Tegretol] 400 mg PER TUBE TID 01/26/14 06/20/19 History fentaNYL [Duragesic] 2 patch TD Q3D 01/26/14 06/21/19 History Ondansetron HCl [Zofran] 8 mg PER TUBE TID PRN 03/24/14 06/20/19 History HYDROmorphone [Dilaudid] 4 mg SLOW IVP Q3HR 10/30/14 06/20/19 History Ferrous Sulfate 60 mg PER TUBE DAILY 05/27/15 06/20/19 History Esomeprazole [NexIUM Injection] 40 mg IV DAILY 08/15/17 06/20/19 History LORazepam [Lorazepam] 1 mg PER TUBE TID 08/15/17 06/20/19 History QUEtiapine Fumarate [SEROquel] 100 mg PER TUBE TID 01/22/18 06/20/19 History Amitriptyline HCl 50 mg PER TUBE BID 06/20/19 06/20/19 History Clotrimazole 1% Cream [Lotrimin 1% 1 applic TOP BID PRN 06/20/19 06/20/19 History Cream] Diazepam 1 each RC 06/20/19 History OLANZapine 5 mg PER TUBE QID 06/20/19 06/20/19 History Ursodiol 250 mg PER TUBE TID 06/20/19 06/20/19 History Vancomycin HCl 750 mg IVPB 0300,1100,1900 vial 06/24/19 Rx - History PMHx: Maninder's syndrome, Gastroparesis and dysmotility, Seizure disorder, Cognitive impairment. PSHx: Cholecystectomy, Bilateral achilles tendon releases, Hamstring release, Ileostomy with colon bypass. Chronic polanco. G-tube. Central line for TNP and Fluids of 500ccNS with TPN. FHx: Diabetes, HTN, Stroke Social: No smoking in the house. Lives with mom and her step-brother. Pt is full code. - Review of Systems ROS unobtainable: other (partially obtained from mother) General: reports: fever/chills, other (increased restlessness). denies: weight/ appetite/sleep changes ENT: denies: nasal congestion, rhinorrhea Respiratory: denies: cough, congestion, shortness of breath Cardiovascular: reports: palpitation. denies: edema Gastrointestinal: denies: nausea, vomiting, diarrhea, constipation, abdominal pain, GI bleeding Genitourinary: reports: other (chronic polanco, urine has appearance "dirty") Skin: denies: rashes - Vital signs BP: [111/79] HR: [88] RR: 16 Tmax: [99.3] Pox: [100]% on [RA] - Physical Exam Constitutional: NAD, other (bed bound. Thin-appearing. Chronic ill-appearing.) HEENT: normocephalic and atraumatic, PERRLA, MMM, other (pale mucous membranes) Neck: supple, trachea midline, no LAD Chest: other (Left central line in place. Dressing is c/d/i.) Heart: RRR, normal S1/S2, no murmurs/rubs/gallops, pulses present, no edema Lungs: CTAB, no respiratory distress, good air movement, no rales/rhonchi, no wheezing Abdomen: soft, non-tender, bowel sounds present, no masses/distention, other (G- tube in place. Dressing c/d/i.) Neurological: other (contracters of hands, chronic. A/O x 0 at baseline, nonverbal.) Skin: no rash/lesions FMR H&P: Results - Labs Result Diagrams: 09/01/19 00:29 08/31/19 20:23 Lab results: WBC 8.5 thou/uL (4.8-10.8) 08/31/19 20:12 Hgb 9.9 g/dL (12.0-16.0) L 08/31/19 20:12 Hct 30.4 % (36.0-47.0) L 08/31/19 20:12 MCV 89.6 fL (78.0-98.0) 08/31/19 20:12 Plt Count 207 thou/uL (130-400) 08/31/19 20:12 Neutrophils % 63.7 % (42.0-75.0) 08/31/19 20:12 Sodium 136 mmol/L (136-145) 08/31/19 20:23 Potassium 3.9 mmol/L (3.5-5.1) 08/31/19 20:23 Chloride 107 mmol/L (98-107) 08/31/19 20:23 Carbon Dioxide 23 mmol/L (22-29) 08/31/19 20:23 BUN 11 mg/dL (7.0-18.7) 08/31/19 20:23 Creatinine 0.45 mg/dL (0.6-1.1) L 08/31/19 20:23 Glucose 87 mg/dL (70-105) 08/31/19 20:23 Lactic Acid 1.4 mmol/L (0.5-2.2) 08/31/19 20:12 Calcium 8.7 mg/dL (7.8-10.44) 08/31/19 20:23 Total Bilirubin 1.1 mg/dL (0.2-1.2) 08/31/19 20:23 AST 76 U/L (5-34) H 08/31/19 20:23 ALT 79 U/L (8-55) H 08/31/19 20:23 Alkaline Phosphatase 394 U/L (40-110) H 08/31/19 20:23 Serum Total Protein 7.2 g/dL (6.0-8.3) 08/31/19 20:23 Albumin 2.8 g/dL (3.5-5.0) L 08/31/19 20:23 Urine Ketones Negative mg/dL (Negative) 08/31/19 18:52 Urine Blood 2+ (Negative) A 08/31/19 18:52 Urine Nitrite Negative (Negative) 08/31/19 18:52 Ur Leukocyte Esterase 500 Renetta/uL (Negative) A 08/31/19 18:52 Urine RBC 21-50 HPF (0-3) A 08/31/19 18:52 Urine WBC Greater than 50 HPF (0-3) A 08/31/19 18:52 Ur Squamous Epith Cells None Seen HPF (0-3) 08/31/19 18:52 Urine Bacteria 4+ HPF (None Seen) A 08/31/19 18:52 - Radiology Interpretation Chest x-ray Status: image reviewed by me, report reviewed by me (Chronic type findings stable. No acute cardiopulmonary abnormalities) FMR H&P: A/P - Problem List (1) Sepsis secondary to UTI Current Visit: Yes Status: Acute Code(s): A41.9 - SEPSIS, UNSPECIFIED ORGANISM; N39.0 - URINARY TRACT INFECTION, SITE NOT SPECIFIED (2) Chronic pain disorder Current Visit: Yes Status: Chronic Code(s): G89.4 - CHRONIC PAIN SYNDROME (3) Nondiabetic gastroparesis Current Visit: No Status: Chronic Code(s): K31.84 - GASTROPARESIS (4) Rett syndrome Current Visit: No Status: Chronic Code(s): F84.2 - RETT'S SYNDROME (5) Seizure disorder Current Visit: No Status: Chronic Code(s): G40.909 - EPILEPSY, UNSP, NOT INTRACTABLE, WITHOUT STATUS EPILEPTICUS (6) Chronic anemia Current Visit: Yes Status: Acute Code(s): D64.9 - ANEMIA, UNSPECIFIED - Plan 34yo F with h/o Rett syndrome, MR, seizure presents as transfer from [facility] for Sepsis 2/2 UTI and acute anemia s/p 1u pRBC. #Sepsis 2/2 UTI - Tachy with fever and urine source with dirty UA - Records reviewed and UCx from 08/25 demonstrated E. Coli susceptible to Rocephin and E. Faecalis susceptible to vanc - S/p vanc and rocephin in ED, will cont - Exchange chronic polanco -> consider Urology consult in AM for possible suprapubic cath. - Consider ID consult in AM - Will follow BCx and UCx #Acute Anemia - Hb reported to be 6.6 at [facility] - S/p 1u pRBC - Mom denies any acute blood loss, FOBT negative - Hb 9.9 in ED. VSS - Will cont to monitor and recheck Hb in AM, possibly hemoconcentrated on lab draw in ED or possible lab error at [facility]. #Chronic Pain - Takes dilaudid IV 4mg Q3hrs - Will transition to Morphine 8mg Q4hr with 2mg Q2hr prn - Cont other home medications #Rett Syndrome - Nonverbal, A/O x 0 at baseline - Will cont home medications #Seizure disorder - 2/2 Rett Syndrome - cont home medications Code: Full IVF: SL Diet: TPN with 500cc NS with each feed VTE: Lovenox PCP: Jose Manuel FMEvan H&P: [place] - Pertinent history I was present with the internet salesperson during the HPI. I scribed the above document. Pt has been having history of recurrent UTI's recently finished tx last friday. Pt started having dirty appearing urine a few days after and it was cultured. Mother states results were not back and today she started fevering. - Pertinent findings Pt A&Ox0. Pt awakes and responds during physical exam. Pt mainly bed bound. Polanco in place. No redness or swelling around osteomy. Cardio: RRR, no murmurs or gallops Resp: CTA-B, no wheezes or crackles Ext: No edema. Pt has some contracture from her chronic disease. - Plan Date/Time: 08/31/192101 Raza Sánchez, PGY-3 have evaluated this patient and agree with findings/ plan as outlined by internet salesperson resident. Pertinent changes/additions are listed here. At this time we will admit pt for sepsis 2/2 UTI. The cx from 08/25 was resulted in the computer and had grown out enterococcus and E. coli w/ sensitivities. At this time we will tx with Rocephin and Vanc. Pt has had some polanco for weeks. Will have them change out. We also may want to consider Urology as this has been a recurring problem. When at [facility] pt was also noted to have hgb of 6.6. Pt mother denied any recent signs of bleed or bloody stools. Pt hgb usually stable at 8-9 per mother. Will get FOBT. Will trend H&H. Hgb improved to 9.9 on arrival to ER here but pt was actively being transfused. Possibly lab error. Pt has rhetts dz. Continue home pain meds an home meds. See above for detailed plan. Addendum - Attending - Attending Attestation Date/Time: 08/31/19 2696 I personally evaluated the patient and discussed the management with Dr. Noguera/ Alice I agree with the History, Examination, Assessment and Plan documented above with any addition or exceptions noted below. 34 yo WF PMH Maninder syndrome and recent hx of recurrent UTI. Presents as transfer from [facility] for sepsis 2/2 UTI and acute on chronic anemia. Mom reports fever up to 102F today and cloudy urine that has persisted in spite of recent completion of bactrim. Also found to have hemoglobin of 6.9 at [facility]. Inpatient team at [facility] did not feel comfortable managing her due to her multiple co-morbid conditions. Given 1 unit PRBC, vanc, and rocephin and transferred to [facility]. Repeat CBC show hemoglobin of 9. Exam limited due to patient underlying non- verbal status. Mother reports increased agitation. Recent outpatient UCx grew enterococcus and e-coli. Culture pending from [facility] at this time. Patient remained tachycardic in ER. Admit for sepsis 2/2 UTI. continue vanc and rocephin. given that she has struggled with this for the past 6 months, contact urology tomorrow for recommendations on suppressive therapy vs suprapubic catheter placement. Will adjust abx pending repeat culture results. Chronic problems as documented above.
[2019-08-31] MEDS ORDERED: Sodium Chloride 0.9% 1,000 ML IV SCH (23:09)
[2019-08-31] MEDS ORDERED: Ondansetron ODT 4 MG TAB SL PRN (23:09)
[2019-08-31] MEDS ORDERED: Ondansetron PF 4 MG/2 ML Vial IVP PRN (23:09)
[2019-08-31] MEDS ORDERED: Vancomycin HCl 1 GM in Premix Bag 1 BAG IVPB SCH (23:15)
[2019-08-31] MEDS ORDERED: Enoxaparin Sodium 40 MG/0.4 ML SYRINGE SC SCH (23:22)
[2019-08-31] MEDS ORDERED: Morphine 2 MG/ML SYRINGE SLOW IVP PRN (23:22)
[2019-08-31] MEDS: Morphine 4 MG/ML VIAL SLOW IVP SCH (23:55)
[2019-09-01 00:09] VITALS: BMI 19.6
[2019-09-01] MEDS: Vancomycin HCl 750 MG in Sodium Chloride 0.9% 250 ML 250 ML IVPB SCH ×3 (01:20→16:32)
[2019-09-01] MEDS ORDERED: Simethicone Chewable 80 MG TAB PER TUBE PRN (04:16)
[2019-09-01] MEDS ORDERED: DIAZEPAM PR PRN (04:16)
[2019-09-01] MEDS: Morphine 4 MG/ML VIAL SLOW IVP SCH ×6 (04:20→23:20)
[2019-09-01] MEDS ORDERED: fentaNYL 75 mcg/hour Patch TD SCH (06:00)
--- NOTE | 2019-09-01 06:40 | PDOC.FM ---
- Subjective Subjective: Ms. Cartwright was resting comfortably in her hospital bed with her mother laying beside her at the time of evaluation. Since Ms. Cartwright is non-verbal, her mother provided much of the HPI. She denied any acute overnight events, as did the nursing staff. - Objective Vital Signs & Weight: Vital Signs (12 hours) Temp Pulse Resp BP Pulse Ox 09/01/19 04:00 98.6 F 100 16 130/87 92 L 08/31/19 23:00 99.2 F 100 17 129/93 H 97 Weight Weight 47.174 kg I&O: 08/30/19 08/31/19 09/01/19 06:59 06:59 06:59 Intake Total 650 Output Total 700 Balance -50 Result Diagrams: 09/01/19 06:32 09/01/19 06:32 Phys Exam - Physical Examination Constitutional: NAD HEENT: moist MMs, sclera anicteric, oral pharynx no lesions Neck: supple Respiratory: no wheezing, no rales, no rhonchi, clear to auscultation bilateral Cardiovascular: RRR, no significant murmur, no rub Gastrointestinal: soft, non-tender, no distention G-Tube and Ileostomy Bag in place, mild erythema at G-Tube site Musculoskeletal: no edema, pulses present +2 at Radial Arteries Patient was contracted and demonstrated mild hypertonicity Deviation from normal: Non-verbal, non-cooperative Deviation from normal: See GI Dx/Plan - Plan Plan: 34 y/o female with a PMH significant for Rett Syndrome, MR, and Seizures who presents from an outside hospital s/p 1u pRBC. #Sepsis 2/2 UTI -HPI is significant for tachycardia and fever (101.9 - Axillary) with source -UCx from 08/25 demonstrated E. Coli susceptible to Ceftriaxone and E. Faecalis susceptible to Vancomycin -Currently receiving Ceftriaxone 1 g Q24H and Vancomycin 750 mg Q8H -Chronically indwelling Geiger catheter is still in place - consider exchanging or consulting Urology for suprapubic catheter -UCx: Pending -Venous Blood Cx: Pending -Infectious Disease Consult: Pending #Acute Anemia -Hg reported to be 6.6 at [facility] - transfused 1U pRBCs -Patient's mother denies acute blood loss - FOBT negative -Hg 9.9 in ED - vital signs currently stable -Await AM labs and treat accordingly #Chronic Pain -Per patient's mother, patient takes Dilaudid IV 4mg Q3H -Pain currently controlled with Morphine IVP 8 mg Q4H w/ additional 2 mg Q2H PRN -Continue other home medication regimen #Rett Syndrome -Nonverbal, minimal movement, does not tolerate PO - A&Ox0 at baseline -Continue home medication regimen #Seizure disorder -2/2 Rett Syndrome -Continue home medication regimen Code: Full Diet: TPN with 500 ml NS following each Feed - NS @ 100 ml/hr Activity: Ad faheem VTE: Lovenox Dispo: Patient is currently stable on the Medical Floor. Ensure nutrition and fluid requirements are met. Consult Infectious Disease and consider Urology consult prior to DC - coordinate as needed. Control pain as needed. Expected LOS > 48H. Addendum - Attending - Attending Attestation Date/Time: 09/01/19 7516 I personally evaluated the patient and discussed the management with Dr. Clemons. I agree with the History, Examination, Assessment and Plan documented above with any addition or exceptions noted below. The patient is resting comfortably. Mom notes her pain appears controlled. continue antibiotics. awaiting cultures. ID is consulted. Will discuss possible suprapubic catheter with urology.
[2019-09-01 07:10] LABS: #Lymphocytes 2.5 thou/uL (1.20-3.40); #Monocytes 0.5 thou/uL (0.11-0.59); #Neutrophils 3.7 thou/uL (1.40-6.50); %Basophils 0.3 % (0.0-1.0); %Eosinophils 0.3 % (0.0-10.0); %Lymphocytes 37.4 % (21.0-51.0); %Monocytes 6.7 % (0.0-10.0); %Neutrophils 55.3 % (42.0-75.0); Hemoglobin 9.3 g/dL (12.0-16.0); Mean Corpuscular HGB CONC 33.7 g/dL (32.0-36.0); Mean Corpuscular Hemoglobin 29.8 pg (27.0-31.0); Mean Corpuscular Volume 88.5 fL (78.0-98.0); Mean Platelet Volume 7.6 fL (7.4-10.4); Platelet Count 183 thou/uL (130-400); RBC Distribution Width 20.1 % (11.5-14.5); Red Blood Cell (RBC) Count 3.11 mill/uL (4.20-5.40); White Blood Cell (WBC) Count 6.7 thou/uL (4.8-10.8)
[2019-09-01 07:41] LABS: ALT (SGPT) 74 U/L (8-55); AST (SGOT) 73 U/L (5-34); Albumin 2.5 g/dL (3.5-5.0); Alkaline Phosphatase 358 U/L (40-110); Anion Gap 10 mmol/L (10-20); BUN (Urea Nitrogen) 8 mg/dL (7.0-18.7); Calc. Creatinine Clearance 150 mL/min (70-130); Calcium 8.3 mg/dL (7.8-10.44); Carbon Dioxide 23 mmol/L (22-29); Chloride 108 mmol/L (98-107); Estimated GFR-MDRD Greater than 90; Globulin 3.9 g/dL (2.4-3.5); Glucose 76 mg/dL (70-105); Potassium 3.8 mmol/L (3.5-5.1); Protein, Total 6.4 g/dL (6.0-8.3); Sodium 137 mmol/L (136-145)
[2019-09-01] MEDS: carBAMazepine 200 MG TAB PER TUBE SCH ×3 (08:41→20:58)
[2019-09-01] MEDS: Amitriptyline HCl 25 MG TAB PER TUBE SCH ×2 (08:42→20:58)
[2019-09-01] MEDS: Dicyclomine 20 MG TAB PER TUBE SCH ×3 (08:42→20:57)
[2019-09-01] MEDS: Lorazepam 1 MG TAB PER TUBE SCH ×3 (08:42→20:58)
[2019-09-01] MEDS: Baclofen 10 MG TAB PO SCH ×2 (08:42→20:56)
[2019-09-01] MEDS: OLANZapine 5 MG TAB PER TUBE SCH ×3 (08:42→20:58)
[2019-09-01] MEDS: Enoxaparin Sodium 40 MG/0.4 ML SYRINGE SC SCH (08:53)
[2019-09-01] MEDS: Pantoprazole 40 MG VIAL IVP SCH (08:54)
[2019-09-01] MEDS ORDERED: URSODIOL 250 MG PER TUBE SCH (09:00)
[2019-09-01] MEDS ORDERED: Vancomycin HCl 1 GM in Premix Bag 1 BAG IVPB SCH (09:00)
[2019-09-01] MEDS ORDERED: [UNRECOGNIZED DRUG - OTHER] IV SCH ×2 (20:00)
[2019-09-01] MEDS ORDERED: SODIUM ACETATE IV SCH ×2 (20:00)
[2019-09-01] MEDS ORDERED: FAT EMULSION IV SCH ×2 (20:00)
[2019-09-01] MEDS ORDERED: POTASSIUM CHLORIDE IV SCH ×2 (20:00)
[2019-09-01] MEDS ORDERED: cefTRIAXone\\ROCEPHIN 1 GM in Sodium Chloride 0.9% 100 ML IVPB SCH (23:59)
[2019-09-02 00:36] LABS: Vancomycin, Trough 13.3 ug/mL
[2019-09-02] MEDS: Vancomycin HCl 750 MG in Sodium Chloride 0.9% 250 ML 250 ML IVPB SCH ×2 (00:51→08:23)
[2019-09-02] MEDS: Morphine 4 MG/ML VIAL SLOW IVP SCH ×3 (03:26→11:19)
--- NOTE | 2019-09-02 05:10 | PDOC.FM ---
- Subjective Subjective: Ms. Beasleyestingcomfortably in her hospital bed with her mother seated next to her at the time of evaluation. Per the patient's mother, there were no acute overnight events and she felt that Ms. Cartwright's pain was adequately being controlled. - Objective Vital Signs & Weight: Vital Signs (12 hours) Temp Pulse Resp BP Pulse Ox 09/02/19 04:00 98.4 F 97 16 119/83 97 09/02/19 00:00 98.4 F 96 16 112/79 96 09/01/19 20:00 98.4 F 106 H 18 127/83 95 Weight Admit Weight 47.174 kg Weight 47.174 kg I&O: 08/31/19 09/01/19 09/02/19 06:59 06:59 06:59 Intake Total 650 Output Total 700 Balance -50 Result Diagrams: 09/02/19 06:11 09/02/19 06:11 Phys Exam - Physical Examination Constitutional: NAD HEENT: PERRLA, moist MMs, sclera anicteric, oral pharynx no lesions Neck: supple, full ROM Respiratory: no wheezing, no rales, no rhonchi, clear to auscultation bilateral Cardiovascular: RRR, no significant murmur, no rub Central line in place with TPN running Gastrointestinal: soft, non-tender, no distention G Tube and Ileostomy Bag in place, no apprent leakage Musculoskeletal: no edema, pulses present +2 pulses at Radial Arteries Contracted, hypertonicity Deviation from normal: Non-verbal, non-cooperative Skin: no rash Dx/Plan - Plan Plan: 34 y/o female with a PMH significant for Rett Syndrome, MR, and Seizures who presents from an outside hospital s/p 1u pRBC. # Sepsis 2/2 UTI -HPI is significant for tachycardia and fever (101.9 - Axillary) with source -UCx (08/25): E. Coli susceptible to Ceftriaxone and E. Faecalis susceptible to Vancomycin -UCx (08/31): E. faecalis (Preliminary) -Currently receiving Ceftriaxone 1 g Q24H and Vancomycin 750 mg Q8H -consider discontinuing Ceftriaxone following final culture result -Venous Blood Cx: Pending -Influenza A&B: Negative -Infectious Disease: Consulted, currently following -Home Health Consult: Pending, will encourage more frequent changing of Geiger catheter prior to DC # Acute Anemia -Hg reported to be 6.6 at [facility] - transfused 1U pRBCs -Patient's mother denies acute blood loss - FOBT negative -Hg 9.9 in ED - vital signs currently stable -Hg 9.3 on 09/01 -Will continue to monitor # Chronic Pain -Per patient's mother, patient takes Dilaudid IV 4mg Q3H -Pain currently controlled with Morphine IVP 8 mg Q4H w/ additional 2 mg Q2H PRN -Continue other home medication regimen # Rett Syndrome -Nonverbal, minimal movement, does not tolerate PO - A&Ox0 at baseline -Continue home medication regimen # Seizure disorder -2/2 Rett Syndrome -Continue home medication regimen Code: Full Diet: TPN with 500 ml NS following each Feed - NS @ 100 ml/hr Activity: Ad faheem VTE: Lovenox Dispo: Patient is currently stable on the Medical Floor. Ensure nutrition and fluid requirements are met. ID consulted, recommendations appreciated. Control pain and agitation as needed and taper antibiotic regimen. Expected LOS > 48H. Addendum - Attending - Attending Attestation Date/Time: 09/02/19 0027 I personally evaluated the patient and discussed the management with Dr. Clemons. I agree with the History, Examination, Assessment and Plan documented above with any addition or exceptions noted below. The patient's UTI is sensitive to oral meds. Will transition to po and d/c home. Mom is agreeable to plan.
[2019-09-02 06:28] LABS: #Basophils 0.1 thou/uL (0.0-0.2); #Lymphocytes 2.4 thou/uL (1.20-3.40); #Monocytes 0.5 thou/uL (0.11-0.59); #Neutrophils 3.2 thou/uL (1.40-6.50); %Basophils 1.1 % (0.0-1.0); %Eosinophils 0.7 % (0.0-10.0); %Lymphocytes 38.4 % (21.0-51.0); %Monocytes 7.9 % (0.0-10.0); Hemoglobin 8.5 g/dL (12.0-16.0); Mean Corpuscular HGB CONC 34.1 g/dL (32.0-36.0); Mean Corpuscular Hemoglobin 29.5 pg (27.0-31.0); Mean Corpuscular Volume 86.4 fL (78.0-98.0); Mean Platelet Volume 7.7 fL (7.4-10.4); Platelet Count 175 thou/uL (130-400); RBC Distribution Width 19.5 % (11.5-14.5); Red Blood Cell (RBC) Count 2.89 mill/uL (4.20-5.40); White Blood Cell (WBC) Count 6.2 thou/uL (4.8-10.8)
[2019-09-02 07:14] LABS: ALT (SGPT) 69 U/L (8-55); AST (SGOT) 70 U/L (5-34); Albumin 2.2 g/dL (3.5-5.0); Alkaline Phosphatase 330 U/L (40-110); Anion Gap 10 mmol/L (10-20); BUN (Urea Nitrogen) 13 mg/dL (7.0-18.7); Bilirubin, Total 0.5 mg/dL (0.2-1.2); Calc. Creatinine Clearance 150 mL/min (70-130); Calcium 7.7 mg/dL (7.8-10.44); Carbon Dioxide 22 mmol/L (22-29); Chloride 109 mmol/L (98-107); Estimated GFR-MDRD Greater than 90; Globulin 3.3 g/dL (2.4-3.5); Glucose 112 mg/dL (70-105); Potassium 3.9 mmol/L (3.5-5.1); Protein, Total 5.5 g/dL (6.0-8.3); Sodium 137 mmol/L (136-145)
[2019-09-02] MEDS: Pantoprazole 40 MG VIAL IVP SCH (08:26)
[2019-09-02] MEDS: Baclofen 10 MG TAB PO SCH (08:28)
[2019-09-02] MEDS: Amitriptyline HCl 25 MG TAB PER TUBE SCH (08:28)
[2019-09-02] MEDS: Dicyclomine 20 MG TAB PER TUBE SCH (08:28)
[2019-09-02] MEDS: Lorazepam 1 MG TAB PER TUBE SCH (08:28)
[2019-09-02] MEDS: carBAMazepine 200 MG TAB PER TUBE SCH (08:29)
[2019-09-02] MEDS: Enoxaparin Sodium 40 MG/0.4 ML SYRINGE SC SCH (08:29)
[2019-09-02] MEDS: OLANZapine 5 MG TAB PER TUBE SCH (08:29)
[2019-09-02 12:16] VITALS: BP 123/93; TEMP 99.1
--- NOTE | 2019-09-02 21:06 | PQF ---
DATE: 09.01.19 ATTN: Deonte Please exercise your independent, professional judgment in responding to the clarification form. Clinical indicators are provided on the bottom of this form for your review Please check appropriate box(s): [ X ] UTI please specify if due to or related to (as applicable): [ X ] Indwelling catheter [ ] Unable to determine etiology UTI Site: [ ] Kidney [ ] Ureter [ X ] Bladder [ ] Urethra [ ] Unable to determine Specify Organism (if known): E. faecalis [ ] Unknown organism [ ] Contaminated urine specimen without UTI [ ] Other diagnosis [ ] Unable to determine Polanco catheter present on admission. In place for incontinence due to underlying Maninder's disease. For continuity of documentation, please document condition throughout progress notes and discharge summary. Thank You. CLINICAL INDICATORS - SIGNS / SYMPTOMS / LABS / RESULTS AND LOCATION IN MR UTI Documented: Per H&P Sepsis 2/2 UTI and acute anemia Positive urinalysis: Per 09.01 PN: UCx from . demonstrated E. Coli susceptible to Ceftriaxone and E. Faecalis susceptible to vancomycin Fever: Per H&P mom reports fever up to 102 today RISK FACTORS / RESULTS AND LOCATION IN MR History indwelling catheter: Per H&P: Chronic polanco, urine has appearance, "dirty" Debility / [facility] resident: Per H&P: Bedbound. TREATMENT / RESULTS AND LOCATION IN MR Antibiotics: 08.31 - 09.01 Orders for Vancomycin 09.01 Orders for Rocephin IV IVF: 08.31 - 09.01 Orders for NS @ 100ml/HR . orders Polanco cath cultured MTDD
--- NOTE | 2019-09-03 14:19 | DIS ---
DATE OF ADMISSION: 08/31/2019 DATE OF DISCHARGE: 09/02/2019 RESIDENT: Silvano Clemons MD ADMITTING ATTENDING: Charlie Shi MD. DISCHARGE ATTENDING: Dr. Andrés Weiss. CONSULTS: None. PROCEDURES: Chest x-ray, which revealed a chronic type findings that were stable. No active cardiopulmonary abnormalities were likely demonstrated. PRIMARY DIAGNOSIS: Sepsis secondary to urinary tract syndrome. SECONDARY DIAGNOSES: 1. Rett syndrome. 2. Seizure disorder. 3. Normocytic anemia. 4. Anemia. 5. Chronic pain disorder. 6. Nondiabetic gastroparesis. DISCHARGE MEDICATIONS: Amoxicillin liquid suspension 250 mg/5 mL 875 mg via G-tube twice daily for 5 days. DISCONTINUED MEDICATIONS: 1. Amitriptyline 50 mg. 2. Baclofen 5 mg. 3. Bethanechol chloride 7.5 mg. 4. Carbamazepine 400 mg. Ceftriaxone 1 g. 5. Bentyl 20 mg. 6. Lovenox 40 mg. Patient's home regimen of TPN: 1. Fentanyl 150 mcg. 2. Ferrous sulfate 300 mg. 3. Lorazepam 2 mg. 4. Morphine 8 mg. 5. Morphine 2 mg. 6. Olanzapine 5 mg. 7. Pantoprazole 40 mg. 8. 100 mg. 9. Vancomycin 750 mg. HISTORY OF PRESENT ILLNESS/HOSPITAL COURSE: Ms. Cartwright is a 34-year-old female with a history of Rett syndrome, mental retardation, and seizure. She presents to transfer from a [facility] secondary to UTI and acute anemia status post 1 unit packed red blood cells. The patient is nonverbal secondary to Rett syndrome and as such, her mother provided much of the history. Her mother stated the patient awoke earlier in the morning with a fever of 101.9 measured via axillary. They presented to [facility] ER where she met sepsis criteria and was subsequently transferred to [facility] in [place], [place] for evaluation and management. The patient has been dealing with UTI off and on for a while. Per the mother, the patient experienced 1 UTI per month on average. She had just recently been discharged from the hospital with antibiotics for UTI. Home Health reported last Friday that her urine appeared dirty, a subsequent culture revealed that it was growing bacteria, but no sensitivities were provided. The patient's mother denies cough, GI, bleed. While being evaluated in the ED, the patient was subsequently found to have a hemoglobin of 6.5 and was subsequently transfused 1 unit of packed red blood cells. The patient had a chronic Geiger in the past several weeks. The patient's mother reported that she had chronic pain that was poorly controlled. Per the mother, the patient had been receiving IVP Dilaudid q.3 hours while at home. The patient had chronic anemia and normally had a hemoglobin of 8 to 9. The patient's mother reported that the patient received a central line several months prior in order to receive TPN as she could no longer tolerate p.o. intake. While she was admitted to the medical floor for further evaluation, subsequent cultures were evaluated and reveal to grow E. faecalis. As such, the patient's antibiotic regimen was further tailored and she was discharged home with liquid amoxicillin suspension to be taken twice daily via G-tube. She was encouraged to follow up with her primary care provider within 1 to 2 weeks and was also encouraged to have her home health services change her Geiger catheter on a once weekly basis rather than a once monthly basis. Prior to discharge, the patient's vital signs revealed a temperature of 99.1, pulse of 102, respiratory rate of 16, blood pressure of 123/93, and O2 saturations 95% on room air. LABORATORY ANALYSIS: Revealed a white blood cell count of 6.2, hemoglobin 8.5, hematocrit 25, platelet count 175. Chem panel revealed sodium of 137, potassium 3.9, chloride 109, carbon dioxide 22, BUN 13, creatinine less than 0.4 with glucose of 112. Lactic acid 1.4, calcium 7.7, total bilirubin 0.5, AST 70, ALT 69, alkaline phosphatase 330. Initial urinalysis revealed the urine sample that was positive for protein, positive for blood, positive for leukocyte esterases, red blood cells, white blood cells, and urine bacteria. DISPOSITION: Guarded. DISCHARGE INSTRUCTIONS: 1. Location: Home. 2. Diet: Continue patient's regimen of TPN. 3. Activity: No restrictions. 4. Followup: The patient was encouraged to follow up with her primary care provider to discuss her recent hospitalization and she was also encouraged to follow up with her home health organization in order to initiate once weekly Geiger catheter changes rather than once monthly Geiger catheter changes in order to decrease the likelihood of subsequent urinary tract infections and subsequent colonization and/or bacterial resistance to antibiotics. Due to the patient's Rett syndrome, seizure disorder and chronic pain. Her ultimate prognosis is poor, but she appears to be stable at this time. Job ID: [id number]
== END 2019-09-02 14:34 | disposition home or self-care (01) | DRG 698 ==
LOC: ERS 18:45 → T4-A 20:18
PROVIDERS: ADMIT Family Medicine; ATTEND Family Medicine
DX: T83.511A Infection and inflammatory reaction due to indwelling urethral catheter, initial encounter (principal); A41.9 Sepsis, unspecified organism; F84.2 Rett's syndrome; N30.90 Cystitis, unspecified without hematuria; Y84.6 Urinary catheterization as the cause of abnormal reaction of the patient, or of later complication, without mention of misadventure at the time of the procedure; D64.9 Anemia, unspecified; G89.4 Chronic pain syndrome; K31.84 Gastroparesis; G40.909 Epilepsy, unspecified, not intractable, without status epilepticus; B95.2 Enterococcus as the cause of diseases classified elsewhere; B96.20 Unspecified Escherichia coli [E. coli] as the cause of diseases classified elsewhere
CPT/HCPCS: 36415; 71045; 80053; 80202; 81003; 81015; 82274; 83605; 85025; 86850; 86900; 86901; 87040; 87077; 87086; 87186; 87804; A4217; C9113; J0696; J1650; J2270; J3370; J3475; J3480; J3490; J7050

== ENCOUNTER 2019-11-30 08:09 | Day surgery (SDC) | payer MEDICARE, MEDICAID ==
[2019-11-29 15:32] VITALS: BMI 17.9
[2019-11-30] MEDS ORDERED: Fentanyl 100 MCG/2 ML VIAL ONE (10:36)
[2019-11-30] MEDS ORDERED: Sodium Chloride 0.9% 10 ML ONE (12:34)
[2019-11-30] MEDS ORDERED: Lidocaine 1% PF 5 ML VIAL ONE (13:41)
[2019-11-30] MEDS ORDERED: PROPOFOL 200 MG/20 ML VIAL ONE (13:41)
[2019-11-30] MEDS ORDERED: Ondansetron PF 4 MG/2 ML Vial ONE (13:41)
--- NOTE | 2019-11-30 13:56 | OP ---
DATE OF PROCEDURE: 11/30/2019 PREOPERATIVE DIAGNOSIS: Urinary retention. POSTOPERATIVE DIAGNOSIS: Urinary retention. PROCEDURES PERFORMED: Cystoscopy and placement of suprapubic tube. ANESTHESIA: General. COMPLICATIONS: None. BLOOD LOSS: Minimal. SPECIMEN: None. DESCRIPTION OF PROCEDURE: After informed consent, the patient was taken to the operating room and transferred to the table. Anesthesia was established. A time-out was performed showing the correct patient, site, and procedure. She received preoperative antibiotics. She was prepped and draped in the lithotomy position. The rigid cystoscope was advanced through the urethra into the bladder. There was a small amount of sediment to the base of the bladder, which was irrigated out. The suprapubic site was selected and infiltrated with 10 mL of lidocaine. A small suprapubic incision was made, and then the scope was removed, and the [place] retractor was placed. An incision was made with the [place] pressed up against the anterior aspect of the bladder allowing the [place] to be delivered into the suprapubic field. The 16-[place] catheter was placed into the [place] and drawn down into the bladder. 7 mL was instilled in the balloon. Cystoscopy was again performed confirming proper placement of the suprapubic tube. The suprapubic tube was sutured in place with silk suture, and the tube was dressed with 4x4s and tape. The tube was connected to drainage. The patient was then awoken from anesthesia, transferred back to her hospital bed, and taken to PACU in stable condition, where she will discharge home upon recovery. Job ID: [id number]
== END 2019-11-30 13:00 | disposition home or self-care (01) ==
LOC: SDC 08:09
PROVIDERS: ATTEND Urology
PROC: 0T9B30Z Drainage of Bladder with Drainage Device, Percutaneous Approach (ICD-10-PCS; principal; 2019-11-30)
DX: R33.9 Retention of urine, unspecified (principal); K21.9 Gastro-esophageal reflux disease without esophagitis; Z79.899 Other long term (current) drug therapy; Z88.8 Allergy status to other drugs, medicaments and biological substances
CPT/HCPCS: J0690; J1642; J2001; J2405; J2704; J3010

== ENCOUNTER 2020-07-28 09:52 | Outpatient (CLI) | payer MEDICARE, MEDICAID ==
--- NOTE | 2020-07-28 12:57 | CT ---
CT ABDOMEN AND PELVIS PERFORMED WITHOUT CONTRAST ENHANCEMENT: HISTORY: Chronic UTI with chronic abdominal pain. History of gastrostomy tube and cholecystectomy. COMPARISON: 09/02/2015 exam. FINDINGS: Lung bases show some bibasilar atelectatic change. The liver, spleen, and pancreas regions appear unremarkable given the limitations of a noncontrast st udy. The gallbladder has been removed. Right and left adrenal glands and right and left kidneys are normal in size. No obstruction. No amy al calculi. There are small periaortic nodes all subcentimeter in size. No significant mesenteric a denopathy. CT OF PELVIS PERFORMED WITH CONTRAST ENHANCEMENT: The right-sided ostomy is present. It appears to represent a diverting ileostomy. There is what rudy ears to be some chain-type sutures with a blind-ending terminal ileum; however, there is a moderate a mount of stool throughout the colon. Clinical correlation is recommended. The rectal wall thickenin g that was note don the previous 2014 study is present on this examination. A suprapubic catheter is in place. Bones appear demineralized. Scoliotic change to the spine is present. IMPRESSION: 1. Chronic-appearing lung changes with some bibasilar atelectasis. 2. Gastrostomy tube and suprapubic catheter in place. 3. There is what appears to be a diverting ileostomy in the right lower quadrant. There is parastom al hernia present. I think the terminal ileum is blind-ending with an approximately 10 cm segment of atrophic-appearing terminal ileum. However, there is stool throughout the colon. I still feel that this is a diversion. Clinical correlation is recommended. 4. Rectal wall thickening which has been seen on a previous exam is still present. 5. Slightly fibromatous-appearing uterus. 6. Post cholecystectomy change. POS: [facility] – [place]
== END 2020-07-28 09:53 | disposition home or self-care (01) ==
LOC: CT 09:52
PROVIDERS: ATTEND Internal Medicine Infectious Disease
DX: N39.0 Urinary tract infection, site not specified (principal); J98.11 Atelectasis; J98.4 Other disorders of lung; K43.5 Parastomal hernia without obstruction or gangrene; K62.89 Other specified diseases of anus and rectum; D25.9 Leiomyoma of uterus, unspecified; Z90.49 Acquired absence of other specified parts of digestive tract; Z93.1 Gastrostomy status
CPT/HCPCS: 74176